=== PATIENT | male | born 1995 | race Caucasian/White ===

== ENCOUNTER → 2018-05-28 09:18 | Outpatient (CLI) | payer OTHER, SELFPAY | PROVIDERS: Family Provider Family Medicine; PCP Family Medicine; Visit Provider Nurse Practitioner Family | DX: J02.9 Acute pharyngitis, unspecified (principal) | CPT/HCPCS: 87081 ==

== ENCOUNTER → 2019-02-03 | Outpatient (CLI) | payer OTHER, SELFPAY ==
[2019-02-02 18:06] VITALS: BMI 19.0
== END | disposition home or self-care (01) ==
LOC: LABSPEC 14:02
PROVIDERS: Family Provider Family Medicine; PCP Family Medicine; Referring Provider Physician Assistant; Visit Provider Physician Assistant
DX: J02.9 Acute pharyngitis, unspecified (principal)
CPT/HCPCS: 87081

== ENCOUNTER → 2019-05-19 | Outpatient (CLI) | payer OTHER, SELFPAY ==
[2019-02-02 18:06] VITALS: BMI 19.0
[2019-05-19 07:45] LABS: Hemoglobin 14.8 g/dL (13.0-16.5); Mean Corp Hgb Conc 32.9 g/dL (32-36); Mean Corpuscular Hgb 29.8 pg (27.0-32.0); Mean Corpuscular Volume 90.5 fL (80-94); Mean Platelet Vol. 9.9 fl (6.2-12.0); Platelet Count 225 K/mm3 (150-450); RBC Distribution Width CV 11.9 % (11.6-14.6); RBC Distribution Width SD 39.8 fl (35.1-43.9); Red Blood Count 4.97 M/mm3 (4.6-6.2); White Blood Count 4.6 K/mm3 (4.4-11.0)
[2019-05-19 08:20] LABS: ALB/GLOB Ratio 1.5 RATIO (0.9-2.4); AST(SGOT) 20 U/L (15-37); Alanine Aminotransfer ALT/SGPT 25 U/L (16-61); Albumin, Serum 4.1 g/dL (3.2-5.0); Alkaline Phosphatase 71 U/L (45-117); Anion Gap 10 (5-15); BUN 18 mg/dL (7-18); BUN/Creat Ratio 23.2 RATIO (10-20); Calcium,Total 8.7 mg/dL (8.5-10.1); Chloride 107 mmol/L (98-107); Cholesterol 175 mg/dL (200); Creatinine, Serum 0.78 mg/dL (0.70-1.30); EST Glomerular Filtration Rate 131 mL/min (>60); Est Glom Filt Rate - Afr Amer 158 mL/min (>60); Globulin 2.8 g/dL (2.2-4.2); Glucose 86 mg/dL (74-106); High Density Lipoprotein 77 mg/dL; Potassium 3.9 mmol/L (3.5-5.1); Protein, Total 6.9 g/dL (6.4-8.2); Sodium Level 144 mmol/L (136-145); Triglycerides 45 mg/dL; Very Low Density Lipoprotein 9 mg/dL (5-40)
== END | disposition home or self-care (01) ==
LOC: LAB 06:44
PROVIDERS: Family Provider Family Medicine; PCP Family Medicine; Referring Provider Nurse Practitioner Family; Visit Provider Nurse Practitioner Family
DX: Z00.00 Encounter for general adult medical examination without abnormal findings (principal)
CPT/HCPCS: 36415; 80053; 80061; 85027

== ENCOUNTER → 2019-05-21 | Outpatient (CLI) | payer OTHER, SELFPAY ==
[2019-05-21 13:21] VITALS: BMI 18.2
== END | disposition home or self-care (01) ==
LOC: LABSPEC 16:33
PROVIDERS: Family Provider Family Medicine; PCP Family Medicine; Visit Provider Physician Assistant Medical
DX: J02.9 Acute pharyngitis, unspecified (principal)
CPT/HCPCS: 87081

== ENCOUNTER 2024-03-16 18:36 | Outpatient (REF) | payer SELFPAY ==
[2024-03-16 18:37] VITALS: BP 152/96; PULSE 102; RESP 18; TEMP 36.4; O2SAT 98; BMI 20.4
--- NOTE | 2024-03-16 19:07 | EX.ED.UPPERE ---
HPI History of Present Illness Chief Complaint: Occup Expose Informant: patient Narrative Narrative: Patient is an OR employee here at the hospital, he states he was in with orthopedics and there was a K wire that accidentally punctured his glove and his skin causing a small amount of bleeding left index finger. He washed it thoroughly, the patient has been screened and has no known history of infectious diseases such as hepatitis or HIV. His last tetanus was less than 10 years ago. Denies any other injury or symptoms. The patient does not have any history of hepatitis or HIV. PFSH PFSH Home Medications ?Medication ?Instructions ?Recorded ?Last Taken ?Type acetaminophen 325 mg capsule 325 mg PO Q6H PRN 05/28/18 Unknown History (Tylenol) ibuprofen 200 mg capsule 200 mg PO TID-QID PRN 05/28/18 Unknown History Allergy/AdvReac Type Severity Reaction Status Date / Time No Known Allergies Allergy Verified 07/12/19 10:34 Social History Smoking Status: Never smoker alcohol intake: never ROS ROS ED Constitutional Constitutional ED: Denies chills or fever(s) Musculoskeletal Musculoskeletal: Denies extremity pain or neck pain Integumentary Reports wounds; Denies Abrasions or rash Neurologic Neurologic: Denies paresthesias or weakness EXAM Physical Exam Const Vital Signs: 03/16/24 18:37 Temperature 97.6 F L Temperature Source Temporal Pulse Rate 102 H Respiratory Rate 18 Blood Pressure 152/96 H Blood Pressure Mean 114 Pulse Ox 98 Oxygen Delivery Method Room Air Positive well nourished and well developed General Appearance ED: well developed and NAD Neck full ROM and supple Back/Spine normal ROM and normal to inspection Extremity Extremity Narrative: Full range of motion no major injury, small wound beneath bandage left index finger pad. Neuro oriented x3, no focal motor deficits and no sensory deficits noted Sensorium / Orientation: alert Psych mental status grossly normal and thought process normal Skin Rashes: no rashes MDM MDM MDM Narrative Medical decision making narrative: The K-wire is not a hollow bore needle, this is a low-risk infection and according to the CDC no postexposure prophylaxis is indicated or necessary at this time. The source patient is available to test for these diseases, we are going to draw the status of this patient at this time he will follow-up with employee health. Discharge Plan Triage Chief Complaint: Occup Expose ED Provider: Cameron Hernandez Dx/Rx/DC Orders Clinical Impression: Needlestick injury accident with exposure to body fluid Instructions: ED NEEDLE STICK Health Care Worker Prescriptions: No Action acetaminophen [Tylenol] 325 mg capsule 325 mg PO Q6H PRN ibuprofen 200 mg capsule 200 mg PO TID-QID PRN Stand Alone Forms: Work Status Form Primary Care Provider: Guillaume Goodrich Referrals: Guillaume Goodrich MD [Primary Care Provider] - Health,Employee [Non-Staff -Ordering Privileges] - (next week) Print Language: French Disposition Disposition: Home, Self Care
[2024-03-16 19:44] VITALS: BP 142/65; PULSE 92; RESP 16; TEMP 36.4; O2SAT 99
[2024-03-16 21:48] LABS: HIV - WCH Non-Reactive (Nonreactive); Hepatitis B Surface Antibody Non-Reactive; Hepatitis B Surface Antigen Non-Reactive (Nonreactive); Hepatitis C Antibody Non-Reactive (Nonreactive)
== END 2024-03-16 19:50 | disposition home or self-care (01) ==
LOC: ED 18:36
PROVIDERS: PCP Family Medicine; Visit Provider Emergency Medicine
DX: S61.231A Puncture wound without foreign body of left index finger without damage to nail, initial encounter (principal); Z77.21 Contact with and (suspected) exposure to potentially hazardous body fluids; W26.8XXA Contact with other sharp object(s), not elsewhere classified, initial encounter; Y99.0 Civilian activity done for income or pay; Y92.239 Unspecified place in hospital as the place of occurrence of the external cause
CPT/HCPCS: 86703; 86706; 86803; 87340

== ENCOUNTER → 2025-05-31 | Outpatient (CLI) | payer OTHER, SELFPAY ==
--- OUTSIDE RECORDS SUMMARY | 2025-05-31 07:22 | XMS RPT_ITS | CCD ---
Author Organization [facility] Care Team Providers Care Founder Chairman And Chief Creative Officer Name Role Phone Lisa Morgan MD Primary Care Provider [phone] Lisa Morgan MD Primary Care Provider Timbo CLASSER.Sabine PRUETT Unavailable Isabelle Mensah PA-C Unavailable Lisa Morgan Primary Care Unavailable Assessment, Health Risk Attending Unavaila Lisa Hagan Primary Care Unavailable Assessment, Health Risk Attending Unavaila ble Assessment, Health Risk Referring Unavaila ble Assessment, Health Risk Attending Unavaila Lisa Hagan Primary Care Unavailable Lisa Morgan Primary Care Unavailable Jena Suarez Attending Unavailable Lisa Morgan Referring Unavailable Lisa Morgan Primary Care Unavailable Jena Suarez Attending Unavailable Lisa Morgan Referring Unavailable SABINE IZQUIERDO Attending Unavailable LISA MORGAN Primary Care Unavailable Medications Current Medications Medication Drug Class(es) Dates Sig (Normalized) Sig (Original) predniSONE 20 mg oral tablet (1 source) Start: 06-22-2024 End: 06-26-2024 take 1 tablet by mouth once daily at mealtime predniSONE (DELTASONE) 20 mg tablet Indications: Subacute cough Take 1 tablet by mouth once daily for 4 days. Take daily with food. 4 tablet 06/22/2024 06/26/2024 Active Problems Active Problems Problem Classification Problem Date Documented Da te Episodic/Chronic Genitourinary symptoms and ill-defined conditions (1 source) Microscopic hematuria; Translations: [Other microscopic hematuria] 06-24-2023 Episodic Other lower respiratory disease (3 sources) Cough; Translations: [Subacute cough] 05-10-2024 Episodic Other upper respiratory infections (1 source) Pharyngitis; Translations: [Acute pharyngitis, unspecified] 05-10-2024 Episodic Residual codes; unclassified (1 source) Generalized aches and pains; Translations: [Pain, unspecified] 06-24-2023 Episodic Unclassified (1 source) Subacute cough; Translations: [Subacute cough] Onset: 06-22-2024 Past or Other Problems Problem Classification Problem Date Documented Da te Episodic/Chronic Other screening for suspected conditions (not mental disorders or infectious disease) (12 sources) Patient encounter status; Translations: [Encounter for screening for diabetes mellitus] Onset: 07-03-2021 07-03-2021 Episodic Screening and history of mental health and substance abuse codes (2 sources) Encounter for screening for depression; Translations: [Encounter for screening examination for other mental health and behavioral disorders] Onset: 06-22-2024 Episodic Results Test Name Value Interpretation Reference Range Facility CBC, Employeeon 05-22-2025 Absolute Lymph 1.28 X10 3/uL Normal 0.83-4.51 [facility] Comment on above: Performed By: #### L 500.2900, L100.0200, L400.0100 #### [facility] [address] [place], [address] Absolute Neut 1.8 X10 3/uL Low 2.0-7.7 [facility] Comment on above: Performed By: #### L 500.2900, L100.0200, L400.0100 #### [facility] [address] [place], [address] Basophils/100 WBC (Bld) 1.1 % High 0-1 [facility] Comment on above: Performed By: #### L 500.2900, L100.0200, L400.0100 #### [facility] [address] [place], [address] Eosinophils/100 WBC (Bld) 1.1 % Normal 0-5 [facility] Comment on above: Performed By: #### L 500.2900, L100.0200, L400.0100 #### [facility] [address] [place], [address] Erythrocyte distribution width (RBC) [Ratio] 12.8 % Normal 11.6-14.6 [facility] Comment on above: Performed By: #### L 500.2900, L100.0200, L400.0100 #### [facility] [address] [place], [address] Hematocrit (Bld) [Volume fraction] 42.8 % Normal 40-54 [facility] Comment on above: Performed By: #### L 500.2900, L100.0200, L400.0100 #### [facility] [address] [place], [address] Hemoglobin (Bld) [Mass/Vol] 14.3 g/dL Normal 13.0-16.5 [facility] Comment on above: Performed By: #### L 500.2900, L100.0200, L400.0100 #### [facility] [address] [place], [address] Lymphocytes/100 WBC (Bld) 34.5 % Normal 19-41 [facility] Comment on above: Performed By: #### L 500.2900, L100.0200, L400.0100 #### [facility] [address] [place], [address] MCH (RBC) [Entitic mass] 30.2 pg Normal 27.0-32.0 [facility] Comment on above: Performed By: #### L 500.2900, L100.0200, L400.0100 #### [facility] [address] [place], [address] MCHC (RBC) [Mass/Vol] 33.4 g/dL Normal 32-36 [facility] Comment on above: Performed By: #### L 500.2900, L100.0200, L400.0100 #### [facility] [address] [place], [address] MCV (RBC) [Entitic vol] 90.3 fL Normal 80-94 [facility] Comment on above: Performed By: #### L 500.2900, L100.0200, L400.0100 #### [facility] [address] [place], [address] Monocytes/100 WBC (Bld) 13.7 % High 0-10 [facility] Comment on above: Performed By: #### L 500.2900, L100.0200, L400.0100 #### [facility] [address] [place], [address] Neutrophils/100 WBC (Bld) 49.3 % Normal 47-70 [facility] Comment on above: Performed By: #### L 500.2900, L100.0200, L400.0100 #### [facility] [address] [place], [address] NRBC # 0.00 10 3/uL Normal 0-5 [facility] Comment on above: Performed By: #### L 500.2900, L100.0200, L400.0100 #### [facility] [address] [place], [address] Nucleated RBC (Bld) [#/Vol] 0 10*3/uL Normal 0-5 [facility] Comment on above: Performed By: #### L 500.2900, L100.0200, L400.0100 #### [facility] [address] [place], [address] Platelet mean volume (Bld) [Entitic vol] 10.0 fL Normal 6.2-12.0 [facility] Comment on above: Performed By: #### L 500.2900, L100.0200, L400.0100 #### [facility] [address] [place], [address] Platelets (Bld) [#/Vol] 236 10*3/uL Normal 150-450 [facility] Comment on above: Performed By: #### L 500.2900, L100.0200, L400.0100 #### [facility] [address] [place], [address] RBC (Bld) [#/Vol] 4.74 10*6/uL Normal 4.6-6.2 [facility] Comment on above: Performed By: #### L 500.2900, L100.0200, L400.0100 #### [facility] [address] [place], [address] RDW SD 42.1 fl Normal 35.1-43.9 [facility] Comment on above: Performed By: #### L 500.2900, L100.0200, L400.0100 #### [facility] [address] [place], [address] WBC (Bld) [#/Vol] 3.7 10*3/uL Low 4.4-11.[address] [facility] Comment on above: Performed By: #### L 500.2900, L100.0200, L400.0100 #### [facility] [address] [place], [address] Employee Profileon 5 LDH 157 U/L Normal 87-241 [facility] Comment on above: Performed By: #### L 500.2900, L100.0200, L400.0100 #### [facility] [address] [place], [address] Phosphate [Mass/Vol] 3.1 mg/dL Normal 2.7-4.5 [facility] Comment on above: Performed By: #### L 500.2900, L100.0200, L400.0100 #### [facility] [address] [place], [address] URIC 5.8 mg/dL Normal 3.5-7.2 [facility] Comment on above: Result Comment: The drugs N-Acetylcysteine and Metamizole may falsely depress this assay. Performed By: #### L 500.2900, L100.0200, L400.0100 #### [facility] [address] [place], [address] Urinalysis, Employeeon 05-22 BILIRUBIN URINE Negative Normal Negative [facility] Comment on above: Order Comment: Urine , Random Performed By: #### L 500.2900, L100.0200, L400.0100 #### [facility] [address] [place], [address] Clarity (U) Clear Normal Clear [facility] Comment on above: Order Comment: Urine , Random Performed By: #### L 500.2900, L100.0200, L400.0100 #### [facility] [address] [place], [address] Color (U) Yellow Normal Yellow [facility] Comment on above: Order Comment: Urine , Random Performed By: #### L 500.2900, L100.0200, L400.0100 #### [facility] [address] [place], [address] GLUCOSE, UR Normal Normal Normal [facility] Comment on above: Order Comment: Urine , Random Performed By: #### L 500.2900, L100.0200, L400.0100 #### [facility] [address] [place], [address] KETONE UR Negative Normal Negative [facility] Comment on above: Order Comment: Urine , Random Performed By: #### L 500.2900, L100.0200, L400.0100 #### [facility] [address] [place], [address] LEUK ESTERASE Negative Normal Negative [facility] Comment on above: Order Comment: Urine , Random Performed By: #### L 500.2900, L100.0200, L400.0100 #### [facility] [address] [place], [address] Nitrite Ql (U) Negative Normal Negative [facility] Comment on above: Order Comment: Urine , Random Performed By: #### L 500.2900, L100.0200, L400.0100 #### [facility] [address] [place], [address] OCCULT BLOOD-UR 25 /ul Abnormal Negative [facility] Comment on above: Order Comment: Urine , Random Performed By: #### L 500.2900, L100.0200, L400.0100 #### [facility] [address] [place], [address] pH UR 6.5 Normal 5.0 - 8.0 [facility] Comment on above: Order Comment: Urine , Random Performed By: #### L 500.2900, L100.0200, L400.0100 #### [facility] [address] [place], [address] PROT DIPSTX 30 mg/dl Abnormal Negative [facility] Comment on above: Order Comment: Urine , Random Performed By: #### L 500.2900, L100.0200, L400.0100 #### [facility] [address] [place], [address] SP.GR. DIPSTX 1.015 Normal 1.002-1.030 [facility] Comment on above: Order Comment: Urine , Random Performed By: #### L 500.2900, L100.0200, L400.0100 #### [facility] [address] [place], [address] UROBILI Normal Normal Normal [facility] Comment on above: Order Comment: Urine , Random Performed By: #### L 500.2900, L100.0200, L400.0100 #### [facility] [address] [place], [address] Office Visit Reporton 2024 Office Visit Report [facility] [address] [place] [address] OFFICE VISIT Date of Service: 01/06/25 MR#: [id number] Acct: [id number] Patient: JIA OLSON Rep #: [id number] : 1995 Provider: EZRA Suarez Age/Sex: 29/M Location: [facility] Status: Signed Employer Purchased Covid Test Note: Patient here today for Covid Testing, requested by their Employer. [facility] Billing Sheet Covid Covid Swab-Rapid: Yes 04/21/25 0840 Date Jena Cook Signature: Date (if applicable) CC: Normal [facility] Office Visit Reporton 2024 Office Visit Report [facility] [address] [place] [address] OFFICE VISIT Date of Service: 01/06/25 MR#: [id number] Acct: [id number] Patient: JIA OLSON Rep #: [id number] : 1995 Provider: EZRA Suarez Age/Sex: 29/M Location: [facility] Status: Signed Employer Purchased Covid Test Note: Patient here today for Covid Testing, requested by their Employer. Assessment and Plan Assessment and Plan Orders: Orders POC Cepheid Covid, FluAB, RSV Today 01/06/25 1113 Date Jena Daniela CHILLING [employer] OPERATOR-C Cosigner Signature: Date (if applicable) CC: Normal [facility] Urgent Care Visit Reporton 0 01-06-2025 Urgent Care Visit Report [facility] [address], [address] [place] [address] OFFICE VISIT Date of Service: 01/06/25 MR#: [id number] Acct: [id number] Name: JIA OLSON Rep #: [id number] : 1995 Provider: EZRA Suarez Age/Sex: 29/M Location: [facility] Status: Signed Intake Vital Signs 03/16/24 18:37 01/06/25 08:04 Height 6 ft 2 in 6 ft 2 in Weight: 164 lb 6 oz BMI 21.1 BP 128/82 H Blood Pressure Location Lt brachial Position Sitting Respiration 14 Pulse 71 Pulse Source NIBP Temp 98.2 F Temp Source Oral Pulse Oximetry (%) 97 Oxygen Delivery Method room air Intake Visit Reasons: COUGH, SORE THROAT, EAR PAIN Chief Complaint: cough, DOUGLAS, BA, fever, ear pain [employer] Required: No Is patient in pain?: Yes Allergies No Known Allergies Allergy (Verified 01/06/25 08:55) Medications ???Medication ???Instructions ???Recorded ???Confirmed ???Type acetaminophen 325 mg capsule 325 mg PO Q6H PRN 05/28/18 5 History (Tylenol) ibuprofen 200 mg capsule 200 mg PO TID-QID PRN 05/28/18 History Have you fallen in the past year?: No Nurse's Note: cough, DOUGLAS, BA, fever, ear pain x 1 week. daughter with same s/s was given ATB by fabrics and material cutter, [facility] for [facility] History No active medical problems Surgical History No pertinent past surgical history Social History Smoking Status: Never smoker alcohol intake: never HPI HPI Chief Complaint: cough, DOUGLAS, BA, fever, ear pain Details: JIA OLSON, is a 29 M who presents to the office today for cough -sx started 1 wk ago -sx productive cough, sinus pressure, body aches, ears feel like under water, congestion and runny nose -felt had fever but not temp taken- had chills -no sob, chest vaughan -cough is green -tried so far Dayquil and Nyquil ROS Const Constitutional: Positive for other (ROS negative x6 except what was placed in HPI) Exam Const General: cooperative, comfortable and no acute distress Orientation: alert, awake and oriented x3 HENMT Head: normal to inspection and normocephalic Ears: hearing grossly normal bilaterally, external ears normal and TM's normal bilaterally Nose: external nose normal and other (+ congestion and rhinorrhea) Face and sinus: normal facial exam, sinuses nontender and face symmetric Mouth: oral mucosae normal, lip normal, tongue normal, oropharynx normal and moist mucous membranes Throat: posterior oropharynx normal, tonsils normal, uvula midline and postnasal drainage (moderate) Neck Neck: normal visual inspection, full ROM and no lymphadenopathy Resp Effort Inspection: normal respiratory effort, able to speak in complete sentences and symmetric chest movement Auscultation: Bilateral: Clear to Auscultation, Left: Clear to Auscultation and Right: Clear to Auscultation Cardio Rate: regular rate Rhythm: regular rhythm Heart Sounds: S1 normal and S2 normal GI Auscultation: normal bowel sounds Palpation: soft Skin General: no rashes or lesions noted and turgor normal Neuro General: patient alert, patient awake and patient oriented x3 Cognition: normal cognition Speech: speech normal Psych Appearance: grossly normal Mental Status: mental status grossly normal Attitude: cooperative Thought Process: normal Thought Content: normal Coding Level of Care Code Off vis,new,level 3 Diagnoses Viral URI J06.9 Acute cough R05.1 Cough type: acute PND (post-nasal drip) R09.82 Assessment and Plan Assessment and Plan (1) Viral URI: Status: Acute Plan: -Warm salt water gargles, warm tea with honey, increase fluids, saline nasal spray 2 squirts each nostril every 2 hours as needed, Flonase nasal spray 1 squirt once a day, cetirizine (Zyrtec) one daily, cool mist humidifier, Tylenol and or ibuprofen as needed for fever or discomfort. -Please follow up with your Primary Care Physician for ongoing chronic problems. If symptoms change or worsen, please present to Emergency Room for further evaluation 1. See visit diagnoses, disposition, and orders. 2. Reviewed and updated medication list; Discussed probable diagnosis, test results if available in office today and management options with patient/guardian: agreed to the medical plan above 3. Education provided regarding visit today, see after visit summary. Instruction provided in the use of fluids, vaporizer, acetaminophen, and/or other OTC medication for symptom control. Explained use of antibiotics only for proven or strongly suspected bacterial infections. 4. Prevention and health maintenance with primary care provider. 5. Patient/guardian educated (more content not included)... [facility] JIA OLSON ([id number]) 1995 M Date Time Provider Department 06/22/24 7:40 AM SABINE IZQUIERDO During your visit today, we recorded the following information about you: Pulse Respiration Blood pressure Weight 98/minute 14/minute 127/83 71.7 kg Sabine Izquierdo APRN.FORK TRUCK OPERATOR 06/22/2024 8:00 AM Signed Chief Complaint Patient presents with: Physical HPI Jia Olson is a 29 year old male who presents here today for Above Complaints.. Patient presents for annual physical. Patient reports he was seen in about a month ago and continues to have a dry hacking nonproductive cough. Past medical history, appointments, medications, allergies reviewed. Previous Medical History PAST MEDICAL HISTORY Diagnosis Date Migraines Palpitations Previous Surgical History PAST SURGICAL HISTORY Procedure Laterality Date CYST/MOLE REMOVAL 02/2023 TOOTH EXTRACTION x2 wisdom teeth Family History FAMILY HISTORY Problem Relation Age of Onset Hypertension Father other (other) Maternal Grandfather 87 multiple myeloma Diabetes No Family History Heart disease No Family History Thyroid No Family History Cancer No Family History Patient Allergies ALLERGIES No Known Allergies Current Medications No current outpatient medications on file prior to visit. No current facility-administered medications on file prior to visit. Social History Social History Tobacco Use Smoking status: Never Smokeless tobacco: Never Vaping Use Vaping status: Never Used Substance Use Topics Alcohol use: Yes Comment: rare (2x/month) Drug use: Never Review of Symptoms REVIEW OF SYSTEMS SEE HPI EXAM: BP 127/83 Pulse 98 Resp 14 Wt 71.7 kg (158 lb) BMI 20.60 kg/m? General Appearance: Well appearing, alert, in no acute distress, well-hydrated, well nourished.. Skin: Skin color, texture, turgor normal, no suspicious rashes or lesions. Lungs: Lungs clear to auscultation. No wheezing, rhonchi, rales.. Heart: RRR without murmur, gallop, or rubs. No ectopy. Abdomen: Normal abdominal exam, Abdomen soft, non-tender. Bowel sounds normal. No masses, organomegaly. Musculoskeletal: No joint swelling, deformity, or tenderness. Peripheral Pulses: Normal. Neurologic: Gait normal. Reflexes normal and symmetric. Sensation grossly intact.. Health Maintenance List Depression Screening Never done Anxiety Screening Never done DTaP,Tdap,Td Vaccine(7 - Td or Tdap) due on 01/26/2022 Influenza Vaccine(1) due on 05/21/2024 Covid-19 Vaccine(2 - 2023- season) due on 05/21/2024 Hepatitis C Screening due on 06/24/2024 HIV Screening due on 06/24/2024 Hepatitis B Vaccine Completed HPV Vaccine Aged Out Data reviewed Reviewed labs from [facility], [facility]NL ASSESSMENT/PLAN: 1. Well adult exam - ICD9: V70.0, ICD10: Z00.00 (primary diagnosis) - Counseled on healthy diet and regular exercise - Follow up for annual exam in one year 2. Screening for depression - ICD9: V79.0, ICD10: Z13.31 - DEPRESSION SCREENING 3. Encounter for screening examination for other mental health and behavioral disorders - ICD9: V79.8, ICD10: Z13.39 - ANXIETY SCREENING 4. Subacute cough - ICD9: 786.2, ICD10: R05.2 - PREDNISONE 20 MG TABLET Sabine Izquierdo, CLASSER.FORK TRUCK OPERATOR Allergies As of Date: 06/22/2024 (No Known Allergies) Date Reviewed: 06/22/2024 Reviewed by: Enriqueta Culp MA - Fully Assessed Reason for Visit: Physical [83] Primary Visit Diagnosis:Well adult exam [Z00.00] Other Visit Diagnoses:Screening for depression [Z13.31] Encounter for screening examination for other mental health and behavioral disorders [Z13.39] Subacute cough [R05.2] Order(s):DEPRESSION SCREENING [] Order #: [id number]: 1 ANXIETY SCREENING [] Order #: [id number]: 1 predniSONE (DELTASONE) 20 mg tabletTake 1 tablet by mouth once daily for 4 days. Take daily with food.Disp: 4 tabletRfl: 0 Prescriptions as of 06/22/2024 - predniSONE (DELTASONE) 20 mg tablet Take 1 tablet by mouth once daily for 4 days. Take daily with food. Problem List As Of Date 06/22/2024 Noted Resolved Well adult exam [Z00.00] 07/03/2021 Screening for diabetes mellitus [Z13.1] 07/03/2021 Prescriptions ordered this encounter Disp Refills Start End PREDNISONE 20 MG TABLET 4 ta* 0 06/22/2024 06/26/2024 Route: ORAL Sig: Take 1 tablet by mouth once daily for 4 days. Take daily with food. Disposition: Return in about 1 year (around 06/22/2025). Follow-up and Disposition History for Encounter Date Provider Department Center 06/22/2024 [id number] IZQUIERDO Pending Sale To [facility] [place] Encounter Status:Closed by SABINE IZQUIERDO on 06/22/24 Normal [facility] CBC, Employeeon 06-21-2024 Absolute Lymph 1.46 X10 3/uL Normal 0.83-4.51 [facility] Comment on above: Performed By: #### L 400.0100, L100.0200, L500.2900 #### [facility] [address] [place], [address] Absolute Neut 1.9 X10 3/uL Low 2.0-7.7 [facility] Comment on above: Performed By: #### L 400.0100, L100.0200, L500.2900 #### [facility] [address] [place], [address] Basophils/100 WBC (Bld) 1.0 % Normal 0-1 [facility] Comment on above: Performed By: #### L 400.0100, L100.0200, L500.2900 #### [facility] [address] [place], [address] Eosinophils/100 WBC (Bld) 2.0 % Normal 0-5 [facility] Comment on above: Performed By: #### L 400.0100, L100.0200, L500.2900 #### [facility] [address] [place], [address] Erythrocyte distribution width (RBC) [Ratio] 12.0 % Normal 11.6-14.6 [facility] Comment on above: Performed By: #### L 400.0100, L100.0200, L500.2900 #### [facility] [address] [place], [address] Hematocrit (Bld) [Volume fraction] 45.8 % Normal 40-54 [facility] Comment on above: Performed By: #### L 400.0100, L100.0200, L500.2900 #### [facility] [address] [place], [address] Hemoglobin (Bld) [Mass/Vol] 15.1 g/dL Normal 13.0-16.5 [facility] Comment on above: Performed By: #### L 400.0100, L100.0200, L500.2900 #### [facility] [address] [place], [address] Lymphocytes/100 WBC (Bld) 36.5 % Normal 19-41 [facility] Comment on above: Performed By: #### L 400.0100, L100.0200, L500.2900 #### [facility] [address] [place], [address] MCH (RBC) [Entitic mass] 29.7 pg Normal 27.0-32.0 [facility] Comment on above: Performed By: #### L 400.0100, L100.0200, L500.2900 #### [facility] [address] [place], [address] MCHC (RBC) [Mass/Vol] 33.0 g/dL Normal 32-36 [facility] Comment on above: Performed By: #### L 400.0100, L100.0200, L500.2900 #### [facility] [address] [place], [address] MCV (RBC) [Entitic vol] 90.0 fL Normal 80-94 [facility] Comment on above: Performed By: #### L 400.0100, L100.0200, L500.2900 #### [facility] [address] [place], [address] Monocytes/100 WBC (Bld) 13.5 % High 0-10 [facility] Comment on above: Performed By: #### L 400.0100, L100.0200, L500.2900 #### [facility] [address] [place], [address] Neutrophils/100 WBC (Bld) 46.5 % Low 47-70 [facility] Comment on above: Performed By: #### L 400.0100, L100.0200, L500.2900 #### [facility] [address] [place], [address] NRBC # 0.00 10 3/uL Normal 0-5 [facility] Comment on above: Performed By: #### L 400.0100, L100.0200, L500.2900 #### [facility] [address] [place], [address] Nucleated RBC (Bld) [#/Vol] 0 10*3/uL Normal 0-5 [facility] Comment on above: Performed By: #### L 400.0100, L100.0200, L500.2900 #### [facility] [address] [place], [address] Platelet mean volume (Bld) [Entitic vol] 9.6 fL Normal 6.2-12.0 [facility] Comment on above: Performed By: #### L 400.0100, L100.0200, L500.2900 #### [facility] [address] [place] [place], [address] Platelets (Bld) [#/Vol] 240 10*3/uL Normal 150-450 [facility] Comment on above: Performed By: #### L 400.0100, L100.0200, L500.2900 #### [facility] [address] [place], [address] RBC (Bld) [#/Vol] 5.09 10*6/uL Normal 4.6-6.2 [facility] Comment on above: Performed By: #### L 400.0100, L100.0200, L500.2900 #### [facility] [address] [place], [address] RDW SD 39.5 fl Normal 35.1-43.9 [facility] Comment on above: Performed By: #### L 400.0100, L100.0200, L500.2900 #### [facility] [address] [place], [address] WBC (Bld) [#/Vol] 4.0 10*3/uL Low 4.4-11.[address] [facility] Comment on above: Performed By: #### L 400.0100, L100.0200, L500.2900 #### [facility] [address] [place], [address] Employee Profile[employer] 4 Albumin [Mass/Vol] 4.1 g/dL Normal 3.2-5.[address] [facility] Comment on above: Performed By: #### L 400.0100, L100.0200, L500.2900 #### [facility] [address] [place] [place], [address] Albumin/Globulin [Mass ratio] 1.4 {ratio} Normal 0.9-2.4 [facility] Comment on above: Performed By: #### L 400.0100, L100.0200, L500.2900 #### [facility] [address] [place], [address] ALK P 62 U/L Normal 45-117 [facility] Comment on above: Performed By: #### L 400.0100, L100.0200, L500.2900 #### [facility] [address] [place], [address] ALT [Catalytic activity/Vol] 26 U/L Normal 16-61 [facility] Comment on above: Performed By: #### L 400.0100, L100.0200, L500.2900 #### [facility] [address] [place], [address] AST [Catalytic activity/Vol] 13 U/L Low 15-37 [facility] Comment on above: Performed By: #### L 400.0100, L100.0200, L500.2900 #### [facility] [address] [place], [address] Bilirubin [Mass/Vol] 0.70 mg/dL Normal 0.20-1.00 [facility] Comment on above: Result Comment: For patients on eltrombopag therapy, use of Dimension [place] TBIL is not recommended. Performed By: #### L 400.0100, L100.0200, L500.2900 #### [facility] [address] [place], [address] Bilirubin.direct [Mass/Vol] 0.18 mg/dL Normal 0.00-0.30 [facility] Comment on above: Performed By: #### L 400.0100, L100.0200, L500.2900 #### [facility] [address] [place], [address] BUN/CRE 19.0 RATIO Normal 10-20 [facility] Comment on above: Performed By: #### L 400.0100, L100.0200, L500.2900 #### [facility] [address] [place], [address] CA,Total 9.4 mg/dL Normal 8.5-10.1 [facility] Comment on above: Performed By: #### L 400.0100, L100.0200, L500.2900 #### [facility] [address] [place], [address] Chloride [Moles/Vol] 107 mmol/L Normal 98-107 [facility] Comment on above: Performed By: #### L 400.0100, L100.0200, L500.2900 #### [facility] [address] [place], [address] CHOL:HDL 2.30 Normal [facility] Comment on above: Performed By: #### L 400.0100, L100.0200, L500.2900 #### [facility] [address] [place], [address] Cholesterol [Mass/Vol] 186 mg/dL Normal 200 [facility] Comment on above: Result Comment: <200 mg/dL Desirable 200-240 mg/dL Borderline >240 mg/dL High Risk Performed By: #### L 400.0100, L100.0200, L500.2900 #### [facility] [address] [place], [address] Cholesterol in HDL [Mass/Vol] 81 mg/dL Normal [facility] Comment on above: Result Comment: The drugs N-Acetylcysteine and Metamizole may falsely depress this assay. Reference Range HDL <40 mg/dL Low HDL Cholesterol HDL >or= 60 mg/dL High HDL Cholesterol Performed By: #### L 400.0100, L100.0200, L500.2900 #### [facility] [address] [place], [address] Cholesterol in LDL [Mass/Vol] 87 mg/dL Normal 0-130 [facility] Comment on above: Performed By: #### L 400.0100, L100.0200, L500.2900 #### [facility] [address] [place], [address] Cholesterol in VLDL [Mass/Vol] 18 mg/dL Normal 5-40 [facility] Comment on above: Performed By: #### L 400.0100, L100.0200, L500.2900 #### [facility] [address] [place], [address] CO2 [Moles/Vol] 27.0 mmol/L Normal 21.0-32.0 [facility] Comment on above: Performed By: #### L 400.0100, L100.0200, L500.2900 #### [facility] [address] [place], [address] Creatinine [Mass/Vol] 0.74 mg/dL Normal 0.70-1.30 [facility] Comment on above: Result Comment: The validity of the calculated GFR GFRAA in patients over 70 years has not been determined. Clinical correlation is essential. Performed By: #### L 400.0100, L100.0200, L500.2900 #### [facility] [address] [place], [address] EST GFR - AA 162 mL/min Normal >60 [facility] Comment on above: Result Comment: Afri can [place] GFR Calc Performed By: #### L 400.0100, L100.0200, L500.2900 #### [facility] [address] [place], [address] GAP 6 Normal 5-15 [facility] Comment on above: Performed By: #### L 400.0100, L100.0200, L500.2900 #### [facility] [address] [place], [address] GFR/1.73 sq M.predicted among non-blacks MDRD (S/P/Bld) [Vol rate/Area] 134 mL/min/{1.73_m2} Normal >60 [facility] Comment on above: Result Comment: Non- GFR Calc Performed By: #### L 400.0100, L100.0200, L500.2900 #### [facility] [address] [place], [address] Globulin (S) [Mass/Vol] 2.9 g/dL Normal 2.2-4.2 [facility] Comment on above: Performed By: #### L 400.0100, L100.0200, L500.2900 #### [facility] [address] [place], [address] Glucose [Mass/Vol] 86 mg/dL Normal 74-[address] [facility] Comment on above: Performed By: #### L 400.0100, L100.0200, L500.2900 #### [facility] [address] [place], [address] LDH 147 U/L Normal 87-241 [facility] Comment on above: Performed By: #### L 400.0100, L100.0200, L500.2900 #### [facility] [address] [place], [address] Phosphate [Mass/Vol] 2.8 mg/dL Normal 2.5-4.9 [facility] Comment on above: Performed By: #### L 400.0100, L100.0200, L500.2900 #### [facility] [address] [place], [address] Potassium [Moles/Vol] 4.3 mmol/L Normal 3.5-5.1 [facility] Comment on above: Performed By: #### L 400.0100, L100.0200, L500.2900 #### [facility] [address] [place], [address] Sodium [Moles/Vol] 140 mmol/L Normal 136-[address] [facility] Comment on above: Performed By: #### L 400.0100, L100.0200, L500.2900 #### [facility] [address] [place], [address] T PROT 7.0 g/dL Normal 6.4-8.2 [facility] Comment on above: Performed By: #### L 400.0100, L100.0200, L500.2900 #### [facility] [address] [place], [address] Triglyceride [Mass/Vol] 88 mg/dL Normal [facility] Comment on above: Result Comment: The drugs N-Acetylcysteine and Metamizole may falsely depress this assay. Serum Triglycerides Reference Interval Normal <150 mg/dL Borderline high 150 - 199 mg/dL High 200 - 499 mg/dL Very High > or = 500 mg/dL Performed By: #### L 400.0100, L100.0200, L500.2900 #### [facility] [address] [place], [address] Urea nitrogen [Mass/Vol] 14 mg/dL Normal 7-18 [facility] Comment on above: Performed By: #### L 400.0100, L100.0200, L500.2900 #### [facility] [address] [place], [address] URIC 5.1 mg/dL Normal 3.5-7.2 [facility] Comment on above: Result Comment: The drugs N-Acetylcysteine and Metamizole may falsely depress this assay. Performed By: #### L 400.0100, L100.0200, L500.2900 #### [facility] [address] [place], [address] Urinalysis, Employeeon 06-21 BILIRUBIN URINE Negative Normal Negative [facility] Comment on above: Order Comment: CLEAN CATCH Performed By: #### L 400.0100, L100.0200, L500.2900 #### [facility] [address] [place], [address] Clarity (U) Sl. Cloudy Normal Clear [facility] Comment on above: Order Comment: CLEAN CATCH Performed By: #### L 400.0100, L100.0200, L500.2900 #### [facility] [address] [place], [address] Color (U) Yellow Normal Yellow [facility] Comment on above: Order Comment: CLEAN CATCH Performed By: #### L 400.0100, L100.0200, L500.2900 #### [facility] [address] [place], [address] GLUCOSE, UR Normal Normal Normal [facility] Comment on above: Order Comment: CLEAN CATCH Performed By: #### L 400.0100, L100.0200, L500.2900 #### [facility] [address] [place], [address] KETONE UR Negative Normal Negative [facility] Comment on above: Order Comment: CLEAN CATCH Performed By: #### L 400.0100, L100.0200, L500.2900 #### [facility] [address] [place], [address] LEUK ESTERASE Negative Normal Negative [facility] Comment on above: Order Comment: CLEAN CATCH Performed By: #### L 400.0100, L100.0200, L500.2900 #### [facility] [address] [place], [address] Nitrite Ql (U) Negative Normal Negative [facility] Comment on above: Order Comment: CLEAN CATCH Performed By: #### L 400.0100, L100.0200, L500.2900 #### [facility] [address] [place], [address] OCCULT BLOOD-UR Negative Normal Negative [facility] Comment on above: Order Comment: CLEAN CATCH Performed By: #### L 400.0100, L100.0200, L500.2900 #### [facility] [address] [place], [address] pH UR 7.0 Normal 5.0 - 8.0 [facility] Comment on above: Order Comment: CLEAN CATCH Performed By: #### L 400.0100, L100.0200, L500.2900 #### [facility] [address] [place], [address] PROT DIPSTX 15 mg/dl Abnormal Negative [facility] Comment on above: Order Comment: CLEAN CATCH Performed By: #### L 400.0100, L100.0200, L500.2900 #### [facility] [address] [place], [address] SP.GR. DIPSTX 1.010 Normal 1.002-1.030 [facility] Comment on above: Order Comment: CLEAN CATCH Performed By: #### L 400.0100, L100.0200, L500.2900 #### [facility] [address] [place], [address] UROBILI Normal Normal Normal [facility] Comment on above: Order Comment: CLEAN CATCH Performed By: #### L 400.0100, L100.0200, L500.2900 #### [facility] [address] [place], [address] STREP A MOLECULAR (POC)on Procedural Control Valid [facility] Strep A (POCT) Negative Negative [facility] XR Chest PA and Lateralon IMPRESSION: No acute radiographic abnormality. Hot Tar Roofer: PSCB Transcribe Date/Time: May 10 2024 8:37A Dictated by : GRECIA SANTANA DO This examination was interpreted and the report reviewed and electronically signed by: GRECIA SANTANA DO on May 10 2024 8:38AM [facility] DIVISION OF RADIOLOGY * * *Final Report* * * DATE OF EXAM: May 10 2024 8:37AM WOX [id number] - XR CHEST 2V FRONTAL/LAT / PROCEDURE REASON: Subacute cough * * * * Physician Interpretation * * * * EXAMINATION: CHEST RADIOGRAPH (2 VIEW FRONTAL & LATERAL) PATIENT/TECHNOLOGIST PROVIDED HISTORY: cough for 2-3 months = CLINICAL HISTORY: 28 years old Male with Subacute cough MQ: XC2_6 EXAM DATE/TIME: 05/10/2024 8:37 AM COMPARISON: No relevant prior studies available. RESULT: Lines, tubes, and devices: None. Lungs and pleura: No consolidation. No pleural effusion. No pneumothorax. Cardiomediastinal silhouette: Normal cardiomediastinal silhouette. Bones and soft tissues: Unremarkable. DIVISION OF RADIOLOGY Provider, [facility] - 05/10/2024 * * *Final Report* * * DATE OF EXAM: May 10 2024 8:37AM WOX [id number] - XR CHEST 2V FRONTAL/LAT / PROCEDURE REASON: Subacute cough * * * * Physician Interpretation * * * * EXAMINATION: CHEST RADIOGRAPH (2 VIEW FRONTAL & LATERAL) PATIENT/TECHNOLOGIST PROVIDED HISTORY: cough for 2-3 months = CLINICAL HISTORY: 28 years old Male with Subacute cough MQ: XC2_6 EXAM DATE/TIME: 05/10/2024 8:37 AM COMPARISON: No relevant prior studies available. RESULT: Lines, tubes, and devices: None. Lungs and pleura: No consolidation. No pleural effusion. No pneumothorax. Cardiomediastinal silhouette: Normal cardiomediastinal silhouette. Bones and soft tissues: Unremarkable. IMPRESSION IMPRESSION: No acute radiographic abnormality. Hot Tar Roofer: PSCB Transcribe Date/Time: May 10 2024 8:37A Dictated by : GRECIA SANTANA DO This examination was interpreted and the report reviewed and electronically signed by: GRECIA SANTANA DO on May 10 2024 8:38AM EST [facility] Radiology Study observation (narrative) [facility] XR Chest PA and LateralOrder ed By: [facility] Provider on 05-10-2024 [facility] LIPID PANEL (EXTERNAL)on Cholesterol [Mass/Vol] 194 mg/dL 0 - 200 MG/DL [facility] HDC-L 84 mg/dL Abnormal 41 mg/dL [facility] LDH 150 [facility] LDL Chol, calculated 96 MG/DL 130 MG/DL [facility] Triglyceride [Mass/Vol] 68 mg/dL 149 mg/dL [facility] VLDL 14 Ratio 10 - 38 Ratio [facility] LIPID PANEL (OUTSIDE)on 05-21 Cholesterol [Mass/Vol] 192 mg/dL [facility] Cholesterol in HDL [Mass/Vol] 83 mg/dL [facility] Cholesterol in LDL [Mass/Vol] 97 mg/dL [facility] LDH 161 [facility] Non-HDL Cholesterol [facility] TC:HDL Ratio 2.30 [facility] Triglyceride [Mass/Vol] 62 mg/dL [facility] VLDL Cholesterol 12 [facility] Vital Signs Date Time Vital Sign Value Performing Clinician Faci lity 06-22-2024 07:41-0400 Body mass index (BMI) [Ratio] 20.6 kg/m2 Sabine Izquierdo APRN.CNP Work Phone: [facility] 06-22-2024 07:41-0400 Body weight 71.67 kg Sabine Izquierdo APRN.CNP Work Phone: [facility] 06-22-2024 07:41-0400 Diastolic blood pressure 83 mm[Hg] Sabine Izquierdo CLASSER.FORK TRUCK OPERATOR Work Phone: [facility] 06-22-2024 07:41-0400 Heart rate 98 /min Sabine Izquierdo CLASSER.FORK TRUCK OPERATOR Work Phone: [facility] 06-22-2024 07:41-0400 Respiratory rate 14 /min Sabine Izquierdo CLASSER.FORK TRUCK OPERATOR Work Phone: [facility] 06-22-2024 07:41-0400 Systolic blood pressure 127 mm[Hg] Sabine Izquierdo CLASSER.FORK TRUCK OPERATOR Work Phone: [facility] 05-10-2024 07:28-0400 Body mass index (BMI) [Ratio] 21.16 kg/m2 Lisa Miller CLASSER.FORK TRUCK OPERATOR Work Phone: [facility] 05-10-2024 07:28-0400 Body temperature 97.39 [degF] Lisa Miller CLASSER.FORK TRUCK OPERATOR Work Phone: [facility] 05-10-2024 07:28-0400 Body weight 73.6 kg Lisa Miller CLASSER.FORK TRUCK OPERATOR Work Phone: [facility] 05-10-2024 07:28-0400 Diastolic blood pressure 74 mm[Hg] Lisa Miller CLASSER.FORK TRUCK OPERATOR Work Phone: [facility] 05-10-2024 07:28-0400 Heart rate 65 /min Lisa Miller CLASSER.FORK TRUCK OPERATOR Work Phone: [facility] 05-10-2024 07:28-0400 Respiratory rate 16 /min Lisa Miller CLASSER.FORK TRUCK OPERATOR Work Phone: [facility] 05-10-2024 07:28-0400 SaO2% (BldA) [Mass fraction] 98 % Lisa Miller CLASSER.FORK TRUCK OPERATOR Work Phone: [facility] 05-10-2024 07:28-0400 Systolic blood pressure 112 mm[Hg] Lisa Miller CLASSER.FORK TRUCK OPERATOR Work Phone: [facility] 06-24-2023 12:33-0400 Body height 186.5 cm Isabellegulshan Mensah PA-C Work Phone: [facility] 06-24-2023 12:33-0400 Body temperature 100.4 [degF] Isabelle Mensah PA-C Work Phone: [facility] 06-24-2023 12:33-0400 Body weight 71.67 kg Isabellegulshan Mensah PA-C Work Phone: [facility] 06-24-2023 12:33-0400 Diastolic blood pressure 70 mm[Hg] Isabelle Mensah PA-C Work Phone: [facility] 06-24-2023 12:33-0400 Heart rate 97 /min Isabelle Mensah PA-C Work Phone: [facility] 06-24-2023 12:33-0400 Respiratory rate 18 /min Isabelle Mensah PA-C Work Phone: [facility] 06-24-2023 12:33-0400 Systolic blood pressure 102 mm[Hg] Isabelle Mensah PA-C Work Phone: [facility] 06-04-2022 11:58-0400 Body height 188 cm Isabelle Mensah PA-C Work Phone: [facility] 06-04-2022 11:58-0400 Body temperature 97.59 [degF] Isabelle Mensah PA-C Work Phone: [facility] 06-04-2022 11:58-0400 Body weight 68.49 kg Isabellegulshan Mensah PA-C Work Phone: [facility] 06-04-2022 11:58-0400 Diastolic blood pressure 72 mm[Hg] Isabelle Mensah PA-C Work Phone: [facility] 06-04-2022 11:58-0400 Heart rate 80 /min Isabelle Mensah PA-C Work Phone: [facility] 06-04-2022 11:58-0400 Respiratory rate 16 /min Isabelle Mensah PA-C Work Phone: [facility] 06-04-2022 11:58-0400 Systolic blood pressure 110 mm[Hg] Isabelle Mensah PA-C Work Phone: [facility] Encounters Encounter Date Encounter Type Care Provider Facility Start: 05-22-2025 End: 05-22-2025 Chart abstracting Lisa Morgan MD Work Phone: [facility] Start: 05-22-2025 ambulatory Health Risk Assessment Facility:[facility] Start: 01-06-2025 End: 01-06-2025 ambulatory [facility] Facility:[facility] Start: 07-21-2024 ambulatory [facility] Facility :[facility] Start: 06-22-2024 End: 06-22-2024 Patient encounter procedure Sabine Izquierdo APRN.CNP Work Phone: [facility] Comment on above: Well adult exam ([facility] Dx); Screening for depression; Encounter for screening examination for other mental health and behavioral disorders; Subacute cough Start: 06-22-2024 End: 06-22-2024 Patient encounter status Sabine Izquierdo APRN.CNP Work Phone: [facility] Work Phone: Start: 06-22-2024 End: 06-22-2024 ambulatory SABINE IZQUIERDO Facility:[facility] Start: 06-21-2024 End: [facility] Start: 05-10-2024 End: 05-10-2024 Telephone encounter Lisa Miller APRN.CNP Work Phone: [place] [facility] Comment on above: Results Start: 05-10-2024 End: 05-10-2024 Subsequent hospital visit by physician Dario Pending [facility] [place] Work Phone: Radiology Comment on above: Subacute cough [R05. 2] Start: 05-10-2024 End: 05-10-2024 Office outpatient visit 15 minutes Lisa Miller APRN.CNP Work Phone: [place] [facility] Comment on above: Pharyngitis, unspeci fied etiology (Primary Dx); Subacute cough Start: 03-17-2024 Chart abstracting Lisa kelly MD Work Phone: [facility] [place] Comment on above: ER Discharge Summary Start: 06-24-2023 End: 06-24-2023 Patient encounter procedure Isabelle Mensah PA-C Work Phone: [facility] [place] Comment on above: Well adult exam (Irma dyana Dx); Microscopic hematuria; Body aches Start: 06-24-2023 End: 06-24-2023 Patient encounter status Isabelle Mensah PA-C Work Phone: [facility] Work Phone: Start: 06-23-2023 Chart abstracting Lisa kelly MD Work Phone: [facility] [place] Comment on above: Outside [id number] Ordered Start: 06-04-2022 Chart abstracting Lisa kelly MD Work Phone: [facility] [place] Comment on above: Outside Lab Results (Patient employee health lab results) Start: 06-04-2022 Encounter for genera l adult medical examination without abnormal findings SABINE IZQUIERDO [facility] Start: 06-04-2022 End: 06-04-2022 Patient encounter procedure Isabelle Mensah PA-C Work Phone: [facility] [place] Comment on above: Well adult exam Start: 06-04-2022 End: 06-04-2022 Patient encounter status Isabelle Mensah PA-C Work Phone: [facility] Work Phone: Procedures Date Procedure Procedure Detail Performing Clinician Start: 06-22-2024 Adult depression screening assessment Sabine Izquierdo CLASSER.FORK TRUCK OPERATOR Work Phone: Start: 05-10-2024 Radiologic exam ches t 2 views Lisa Miller APRN.FORK TRUCK OPERATOR Work Phone: Start: 05-10-2024 STREP A MOLECULAR (POC) Lisa Miller APRN.FORK TRUCK OPERATOR Work Phone: Start: 06-23-2023 Lipid panel [facility] Prov[facility] er Start: 06-04-2022 Lipid panel [facility] Start: 06-04-2022 Adult depression screening assessment Lisa Morgan MD Work Phone: Plan of Treatment Date Care Activity Detail Author Start: 06-22-2025 Anxiety Screening Anxiety Screening [facility] Start: 06-22-2025 Depression Screening Depression Scre ening [facility] Start: 05-30-2025 End: 05-30-2025 Patient encounter procedure 05/30/2025 9:40 AM EDT Office Visit [facility] [address] [place], [place] [id number] Lisa Morgan MD [address] [place], [place] [id number] Work Physical. [facility] [place] Comment on above: Work Physical. Start: 05-21-2025 Influenza vaccination Influenza Vacc ine (#1) [facility] Start: 06-24-2024 Covid-19 Vaccine () Covid-19 Vaccine () [facility] Comment on above: Postponed from 05/21 (Declined at this time) Start: 06-24-2024 Covid-19 Vaccine (2 - Booster for [place] series) Covid-19 Vaccine (2 - Booster for [place] series) [facility] Comment on above: Postponed from 07/31 (Declined at this time) Start: 06-24-2024 Hepatitis C Screening Hepatitis C [facility] Comment on above: Postponed from 06/01 (Declined at this time) Start: 06-24-2024 Hepatitis C screening Hepatitis C [facility] Comment on above: Postponed from 06/01 (Declined at this time) Start: 06-24-2024 HIV Screening HIV Screening [facility] Comment on above: Postponed from 06/01 (Declined at this time) Start: 06-24-2024 HIV screening HIV Screening [facility] Comment on above: Postponed from 06/01 (Declined at this time) Start: 05-21-2024 Covid-19 Vaccine () Covid-19 Vaccine () [facility] Start: 05-21-2024 Covid-19 Vaccine ( season) Covid-19 Vaccine ( season) [facility] Start: 05-21-2024 Influenza vaccination Influenza Vacc ine (#1) [facility] Start: 03-19-2024 Influenza vaccination Influenza Vacc ine (#1) [facility] Comment on above: Postponed from 05/21 (Declined at this time) Start: 09-20-2023 Behavioral Health Screening Behavioral Health Screening [facility] Start: 09-19-2023 Depression Assessment Depression Ass essment [facility] Comment on above: Postponed from 09/20 (Declined at this time) Start: 06-24-2023 End: 08-24-2023 Urinalysis complete panel - Urine URINALYSIS, WITH MICROSCOPIC Lab Routine Microscopic hematuria Expected: 06/24/2023, Expires: 08/24/2023 [place] Work Phone: Comment on above: Expected: 06/24/2023 , Expires: 08/24/2023 Start: 06-04-2023 Adult depression screening assessment DEPRESSION SCREENING [facility] Start: 07-03-2022 HEPATITIS C SCREENING HEPATITIS C [facility] Comment on above: Postponed from 06/01 (Declined at this time) Start: 07-03-2022 HIV SCREENING HIV SCREENING [facility] Comment on above: Postponed from 06/01 (Declined at this time) Start: 2022 HPV Vaccine (1 - 3-d ose SCDM series) HPV Vaccine (1 - 3-dose SCDM series) [facility] Start: 05-21-2022 Influenza vaccination INFLUENZA (#1) [facility] Start: 01-26-2022 Urine microalbumin profile [facility] Start: 07-31-2021 COVID-19 VACCINE (2 - Booster for [place] series) COVID-19 VACCINE (2 - Booster for [place] series) [facility] Start: 2013 Anxiety Screening Anxiety Screening [facility] Start: 2013 Depression Screening Depression Scre ening [facility] Start: 2013 Hepatitis C screening Hepatitis C [facility] Start: 2013 HIV screening HIV Screening [facility] Immunizations Immunization Date Immunization Notes Care Provider [facility] 08-05-2023 influenza virus vaccine, unspecified formulation Lisa Miller APRN.CNP Work Phone: [facility] 08-05-2022 influenza virus vaccine, unspecified formulation Lisa Morgan MD Work Phone: [facility] 08-11-2021 influenza, seasonal, injectable, preservative free Lisa Morgan MD Work Phone: [facility] 06-05-2021 COVID-19 vaccine ([place]) Lisa Morgan MD Work Phone: [facility] 07-08-2020 influenza, seasonal, injectable, preservative free Lisa Morgan MD Work Phone: [facility] 07-24-2019 influenza, seasonal, injectable, preservative free Lisa Morgan MD Work Phone: [facility] 07-04-2018 influenza, seasonal, injectable, preservative free Lisa Morgan MD Work Phone: [facility] 03-02-2018 hepatitis B vaccine, adult dosage Lisa Morgan MD Work Phone: [facility] 06-24-2012 varicella virus vaccine Freddie Morgan MD Work Phone: [facility] 05-20-2012 varicella virus vaccine Freddie Morgan MD Work Phone: [facility] 01-27-2012 tetanus toxoid, redu liza diphtheria toxoid, and acellular pertussis vaccine, adsorbed Lisa Morgan MD Work Phone: [facility] 04-08-2001 diphtheria, tetanus toxoids and acellular pertussis vaccine, unspecified formulation Lisa Morgan MD Work Phone: [facility] 04-08-2001 measles, mumps and rubella virus vaccine Lisa Morgan MD Work Phone: [facility] 04-08-2001 poliovirus vaccine, inactivated Lisa Morgan MD Work Phone: [facility] 01-04-1997 diphtheria, tetanus toxoids and acellular pertussis vaccine, unspecified formulation Lisa Morgan MD Work Phone: [facility] 01-04-1997 haemophilus influenz ae type b vaccine, PRP-T conjugate Lisa Morgan MD Work Phone: [facility] 06-08-1996 measles, mumps and rubella virus vaccine Lisa Morgan MD Work Phone: [facility] 1995 DTP-Haemophilus influenzae type b conjugate vaccine Lisa Morgan MD Work Phone: [facility] 1995 hepatitis B vaccine, pediatric or pediatric/adolescent dosage Lisa Morgan MD Work Phone: [facility] 1995 trivalent poliovirus vaccine, live, oral Lisa Morgan MD Work Phone: [facility] 1995 DTP-Haemophilus influenzae type b conjugate vaccine Lisa Morgan MD Work Phone: [facility] 1995 trivalent poliovirus vaccine, live, oral Lisa Morgan MD Work Phone: [facility] 1995 DTP-Haemophilus influenzae type b conjugate vaccine Lisa Morgan MD Work Phone: [facility] 1995 hepatitis B vaccine, pediatric or pediatric/adolescent dosage Lisa Morgan MD Work Phone: [facility] 1995 trivalent poliovirus vaccine, live, oral Lisa Morgan MD Work Phone: [facility] 1995 hepatitis B vaccine, pediatric or pediatric/adolescent dosage Lisa Morgan MD Work Phone: [facility] Payers Date Payer Category Payer Unknown [id number] 2024 Self-pay 2022 Private Health Insurance [id number] 2022 Private Health Insurance [id number] 2020 Unknown MMO MMO TPA [id number] 2020-Present [address] [place] [address] PPO [id number] Unknown [id number] 2 Unknown [id number] 2 Unknown [id number] 2 Unknown [id number] 2 Unknown [id number] 2 Social History Date Type Detail Facility Start: 07-03-2021 End: 06-24-2023 Tobacco smoking status NHIS Never smoked tobacco [facility] Start: 07-03-2021 End: 06-24-2023 Tobacco use and exposure Smokeless tobacco non-user [facility] Start: 06-04-2022 End: 05-10-2024 Alcohol intake Current drinker of alcohol (finding) [facility] Start: 06-04-2022 History SDOH Alcohol Frequency 3 [facility] Start: 06-04-2022 History SDOH Alcohol Std Drinks 1 [facility] Start: 07-03-2021 History SDOH Alcohol Comment rare (2x/month) [facility] Start: 06-04-2022 History SDOH Social Connections Phone 4 [facility] Start: 06-04-2022 History SDOH Social Connections Get Together 5 [facility] Start: 06-04-2022 History SDOH Transport Med 2 [facility] Start: 1995 Sex Assigned At Not on file [facility] Start: 05-25-2022 End: 06-04-2022 Exposure to SARS-CoV-2 (event) Not sure [facility] Start: 06-04-2022 End: 06-24-2023 History of Social function [place] [facility] Start: 06-04-2022 End: 06-24-2023 Social connection and isolation panel [facility] Start: 08-21-2012 Active Member of Clu bs or Organizations Not on file [facility] Are you now , , , , never or living with a partner? [facility] How often to you hav e a drink containing alcohol? 2-4 times a month [facility] How many standard dr inks containing alcohol do you have on a typical day? 1 or 2 [facility] How often do you hav e 6 or more drinks on 1 occasion? Never [facility] Do you feel stress - tense, restless, nervous, or anxious, or unable to sleep at night because your mind is troubled all the time - these days [OSQ] Not at all [facility] (I/We) worried samy er (my/our) food would run out before (I/we) got money to buy more. Never true [facility] In the past 12 month s, was there a time when you were not able to pay the mortgage or rent on time? No [facility] Do you belong to any clubs or organizations such as bahai groups, unions, fraternal or athletic groups, or school groups? Yes [facility] Do you feel stress - tense, restless, nervous, or anxious, or unable to sleep at night because your mind is troubled all the time - these days [OSQ] Only a little [facility] Clinical Notes 06-04-2022 to 05-22-2025 Roberta Fajardo MA - 05/22/2025 8:17 AM Sabine Ann APRN.FORK TRUCK OPERATOR - 06/22/2024 7:45 AM EDTTelephone Encounter - Delmis Cleveland MA - 05/10/2024 9:36 AM EDTPatient Instructions Note Date & Type Note Facility 05-22-2025 Note HNO ID: [id number] Author: ROBERTA FAJARDO MA Service: ? Author Type: Wound Care Coordinator Type: Progress Notes Filed: 05/22/2025 08:38 Note Text: Scan on 05/22/2025 7:37 AM by ProviderEdu PA-C: UA Scan on 05/22/2025 7:10 AM by ProviderEdu PA-C: CBC Scan on 05/22/2025 8:16 AM by ProviderEdu PA-C: BMP [facility] 05-22-2025 History of Presen t illness Narrative Scan on 05/22/2025 7:37 AM by Edu Jarvis PA-C: UA Scan on 05/22/2025 7:10 AM by Edu Jarvis PA-C: CBC Scan on 05/22/2025 8:16 AM by Edu Jarvis PA-C: BMP documented in this encounter [facility] 06-22-2024 Note HNO ID: [id number] Author: SABINE IZQUIERDO APRN.FORK TRUCK OPERATOR Service: ? Author Type: Nurse Practitioner Type: Progress Notes Filed: 06/22/2024 08:00 Note Text: Chief Complaint Patient presents with: Physical HPI Jia Olson is a 29 year old male who presents here today for Above Complaints.. Patient presents for annual physical. Patient reports he was seen in about a month ago and continues to have a dry hacking nonproductive cough. Past medical history, appointments, medications, allergies reviewed. Previous Medical History PAST MEDICAL HISTORY Diagnosis Date Migraines Palpitations Previous Surgical History PAST SURGICAL HISTORY Procedure Laterality Date CYST/MOLE REMOVAL 02/2023 TOOTH EXTRACTION x2 wisdom teeth Family History FAMILY HISTORY Problem Relation Age of Onset Hypertension Father other (other) Maternal Grandfather 87 multiple myeloma Diabetes No Family History Heart disease No Family History Thyroid No Family History Cancer No Family History Patient Allergies ALLERGIES No Known Allergies Current Medications No current outpatient medications on file prior to visit. No current facility-administered medications on file prior to visit. Social History Social History Tobacco Use Smoking status: Never Smokeless tobacco: Never Vaping Use Vaping status: Never Used Substance Use Topics Alcohol use: Yes Comment: rare (2x/month) Drug use: Never Review of Symptoms REVIEW OF SYSTEMS SEE HPI EXAM: BP 127/83 Pulse 98 Resp 14 Wt 71.7 kg (158 lb) BMI 20.60 kg/m? General Appearance: Well appearing, alert, in no acute distress, well-hydrated, well nourished.. Skin: Skin color, texture, turgor normal, no suspicious rashes or lesions. Lungs: Lungs clear to auscultation. No wheezing, rhonchi, rales.. Heart: RRR without murmur, gallop, or rubs. No ectopy. Abdomen: Normal abdominal exam, Abdomen soft, non-tender. Bowel sounds normal. No masses, organomegaly. Musculoskeletal: No joint swelling, deformity, or tenderness. Peripheral Pulses: Normal. Neurologic: Gait normal. Reflexes normal and symmetric. Sensation grossly intact.. Health Maintenance List Depression Screening Never done Anxiety Screening Never done DTaP,Tdap,Td Vaccine(7 - Td or Tdap) due on 01/26/2022 Influenza Vaccine(1) due on 05/21/2024 Covid-19 Vaccine(2 - season) due on 05/21/2024 Hepatitis C Screening due on 06/24/2024 HIV Screening due on 06/24/2024 Hepatitis B Vaccine Completed HPV Vaccine Aged Out Data reviewed Reviewed labs from [facility], [facility] ASSESSMENT/PLAN: 1. Well adult exam - ICD9: V70.0, ICD10: Z00.00 (primary diagnosis) - Counseled on healthy diet and regular exercise - Follow up for annual exam in one year 2. Screening for depression - ICD9: V79.0, ICD10: Z13.31 - DEPRESSION SCREENING 3. Encounter for screening examination for other mental health and behavioral disorders - ICD9: V79.8, ICD10: Z13.39 - ANXIETY SCREENING 4. Subacute cough - ICD9: 786.2, ICD10: R05.2 - PREDNISONE 20 MG TABLET Sabine Izquierdo APRN.[facility] 06-22-2024 History of Presen t illness Narrative Chief Complaint Patient presents with: Physical HPI Jia Olson is a 29 year old male who presents here today for Above Complaints.. Patient presents for annual physical. Patient reports he was seen in about a month ago and continues to have a dry hacking nonproductive cough. Past medical history, appointments, medications, allergies reviewed. Previous Medical History PAST MEDICAL HISTORY Diagnosis Date Migraines Palpitations Previous Surgical History PAST SURGICAL HISTORY Procedure Laterality Date CYST/MOLE REMOVAL 02/2023 TOOTH EXTRACTION x2 wisdom teeth Family History FAMILY HISTORY Problem Relation Age of Onset Hypertension Father other (other) Maternal Grandfather 87 multiple myeloma Diabetes No Family History Heart disease No Family History Thyroid No Family History Cancer No Family History Patient Allergies ALLERGIES No Known Allergies Current Medications No current outpatient medications on file prior to visit. No current facility-administered medications on file prior to visit. Social History Social History Tobacco Use Smoking status: Never Smokeless tobacco: Never Vaping Use Vaping status: Never Used Substance Use Topics Alcohol use: Yes Comment: rare (2x/month) Drug use: Never Review of Symptoms REVIEW OF SYSTEMS SEE HPI EXAM: BP 127/83 Pulse 98 Resp 14 Wt 71.7 kg (158 lb) BMI 20.60 kg/m General Appearance: Well appearing, alert, in no acute distress, well-hydrated, well nourished.. Skin: Skin color, texture, turgor normal, no suspicious rashes or lesions. Lungs: Lungs clear to auscultation. No wheezing, rhonchi, rales.. Heart: RRR without murmur, gallop, or rubs. No ectopy. Abdomen: Normal abdominal exam, Abdomen soft, non-tender. Bowel sounds normal. No masses, organomegaly. Musculoskeletal: No joint swelling, deformity, or tenderness. Peripheral Pulses: Normal. Neurologic: Gait normal. Reflexes normal and symmetric. Sensation grossly intact.. Health Maintenance List Depression Screening Never done Anxiety Screening Never done DTaP,Tdap,Td Vaccine(7 - Td or Tdap) due on 01/26/2022 Influenza Vaccine(1) due on 05/21/2024 Covid-19 Vaccine(2 - 2023- season) due on 05/21/2024 Hepatitis C Screening due on 06/24/2024 HIV Screening due on 06/24/2024 Hepatitis B Vaccine Completed HPV Vaccine Aged Out Data reviewed Reviewed labs from [facility], [facility] ASSESSMENT/PLAN: 1. Well adult exam - ICD9: V70.0, ICD10: Z00.00 (primary diagnosis) - Counseled on healthy diet and regular exercise - Follow up for annual exam in one year 2. Screening for depression - ICD9: V79.0, ICD10: Z13.31 - DEPRESSION SCREENING 3. Encounter for screening examination for other mental health and behavioral disorders - ICD9: V79.8, ICD10: Z13.39 - ANXIETY SCREENING 4. Subacute cough - ICD9: 786.2, ICD10: R05.2 - PREDNISONE 20 MG TABLET Sabine Izquierdo APRN.FORK TRUCK OPERATOR documented in this encounter [facility] 05-10-2024 Telephone encount er Note Pt was notified of the results. Pt verbalized understanding. Delmis Cleveland MA [facility] 05-10-2024 Miscellaneous Notes Formattin g of this note might be different from the original. Pt was notified of the results. Pt verbalized understanding. Delmis [place] MA Please inform patient that chest x-ray is negative. Follow-up with PCP as discussed. Lisa Miller APRN.CNP documented in this encounter [facility] 05-10-2024 Telephone encount er Note Please inform patient that chest x-ray is negative. Follow-up with PCP as discussed. Lisa Miller APRN.[facility]BLE [facility] 05-10-2024 History of Presen t illness Narrative Radiology Service Progress Note PATIENT NAME: Jia Olson DATE OF SERVICE: May 10, 2024 TIME: 8:25 AM PATIENT IDENTITY VERIFICATION COMPLETED USING TWO (2) IDENTIFIERS: Name and Date of confirmed by patient verbally. FALL SCREENING: Has the patient had 2 falls in the last year or 1 fall with injury or currently using an Ambulatory Assistive Device (Walker, Cane, Wheelchair, Crutches, etc.)? No PATIENT GENDER DATA: Male PATIENT RELEVANT IMPLANT DATA REVIEWED: Not Applicable PATIENT PRESENTS WITH AN IMPLANTABLE OR ATTACHED BUILDING ANALYST/SUPERVISOR: No RADIOLOGY DEPARTMENT: General X-ray: Exam(s) Completed: Chest X-Ray PERIPHERAL IV DATA: Not applicable SIGNED BY: CLARIBEL EdwardR) May 10, 2024 8:37 AM documented in this encounter [facility] 05-10-2024 Instructions Lisa Miller APRN.FORK TRUCK OPERATOR - 05/10/2024 7:40 AM EDT [facility] PATIENT INFO PHARYNGITIS OVERVIEW A sore throat (pharyngitis) is a common problem, and usually is caused by a viral or bacterial infection. Sore throat usually resolves on its own without complications in adults, although it is important to know when to seek medical attention. Viruses can cause a sore throat and other upper respiratory infections, such as the common cold. Sore throat caused by a virus is not treated with antibiotics, but instead may be treated with rest, pain medication, and other therapies aimed at relieving symptoms. Strep throat is a particular kind of pharyngitis that is caused by a bacterium known as group A streptococcus (GAS). Strep throat is treated with a course of antibiotics. SORE THROAT SYMPTOMS Viral pharyngitis - Most people with a sore throat have a virus. The most common viruses are those that cause upper respiratory infections, such as the common cold. Symptoms of a viral infection can include: A runny or congested nose Irritation or redness of the eyes Cough, hoarseness, or soreness in the roof of the mouth Some viruses cause a fever and can make you feel quite ill. Strep throat - Approximately 10 percent of adults with a sore throat have strep throat. Signs and symptoms of strep throat include the following: Pain in the throat Fever (temperature greater than 100.4 F or 38 C) Enlarged lymph glands in the neck No cough, runny nose, or irritation/redness of the eyes When to seek urgent help - See your doctor or nurse immediately if you have a sore throat along with any of the following: Difficulty breathing Skin rash Drooling because you cannot swallow Swelling of the neck or tongue Stiff neck or difficulty opening the mouth SORE THROAT DIAGNOSIS Most people with a sore throat get better without treatment. There is no specific treatment for a sore throat caused by usual cold viruses. Is it strep or not? - A combination of symptoms (fever, enlarged glands in the neck, white patches on your tonsils, and no cough) can help in determining if you have strep. If you have two or more symptoms, a rapid test or throat culture may be done. People with fewer than two symptoms usually do not need testing or treatment for strep throat. Rapid test - The rapid test determines if there are streptococcus bacteria on a throat swab. The test can be done in a clinician's office and the results are available within a few minutes. The test is accurate in most cases, although a small percentage of tests are falsely negative (the bacteria are present but the test is negative). Strep Confirmatory Test - involves swabbing the throat, sending the swab to a laboratory, and waiting 24 to 48 hours for the results. These Strep PCR tests are slightly more accurate than the rapid test. TREATMENT OF SORE THROAT Sore throat treatment - Antibiotics do not help throat pain caused by a virus and are not recommended. Sore throat caused by viral infections usually lasts four to five days. During this time, treatments to reduce pain may be helpful. Several therapies can help to relieve throat pain. Pain medication - You can treat your throat pain with a mild pain reliever such as acetaminophen (Tylenol ) or a non -steroidal anti-inflammatory agent such as ibuprofen or naproxen (Motrin or Aleve ). Oral rinses - Salt water gargles are an effective treatment for throat pain. It is not clear that salt water works to relieve pain, but it is unlikely to be harmful. Most recipes suggest 1/4 to 1/2 teaspoon of salt per one cup (8 ounces) of warm water. Sprays - Sprays containing topical anesthetics ( benzocaine, phenol) are available to treat sore throat. However, such sprays are no more effective than sucking on hard candy. Lozenges - A variety of lozenges (cough drops) are available to treat throat pain or relieve dryness. However, it is not clear that lozenges work any better than other forms of hard candy, which are generally less expensive. Other treatments - Other treatments that may help with throat pain include increase fluid intake and rest, sipping warm beverages (eg, honey or lemon tea, chicken soup), cold beverages, or eating cold or frozen desserts (eg, ice cream, popsicles).Replace your toothbrush, it may be harboring germs. Until the illness is resolved, do not share anything by mouth. Strep throat - Penicillin, or an antibiotic related to penicillin, is the treatment of choice for strep throat. A one time injection of penicillin is also available. People who are allergic to penicillin are given an alternate antibiotic. It is important to finish the entire course of treatment to completely eliminate the infection. If symptoms do not begin to improve or worsen by three days of antibiotic treatment, you should see your primary care provider. Return to work/school - If you have been diagnosed with strep throat, stay home from work or school until you have completed 24 hours of antibiotics. Within 24 hours of beginning antibiotic treatment, you will feel better and will be less contagious. If you have a sore throat (not diagnosed as strep), you may participate in your usual activities as soon as you feel well. What to do if symptoms don't improve:- If symptoms do not begin to improve within 5 to 7 days you should see your primary care provider. documented in this encounter [facility] 05-10-2024 History of Presen t illness Narrative Subjective HPI Nontoxic-appearing male presents urgent care chief complaint sore throat headache fatigue episodic fever. Duration of symptom 1 week. Associated symptoms listed above. States additionally has had a cough. This has been worse in the morning. This has been present for greater than 1 month. Has been using Tylenol Motrin this is helped some. Sick contacts work. No difficulty swallowing his secretion decreased range of motion of neck or trismus. Denies any fever body aches chills productive cough chest pain shortness of breath pleuritic pain hemoptysis nausea vomiting abdominal pain change in bowel or bladder habits. Past medical history prescription medication use and allergies reviewed. .Patient presents with: Sore Throat: ST, [place] and fever x 1 week PAST MEDICAL HISTORY No date: Migraines No date: Palpitations PAST SURGICAL HISTORY 02/2023: CYST/MOLE REMOVAL No date: TOOTH EXTRACTION Comment: x2 wisdom teeth ALLERGIES Patient has no known allergies. MEDICATIONS No prescriptions on file. FAMILY HISTORY Problem Relation Age of Onset Hypertension Father other (other) Maternal Grandfather 87 multiple myeloma Diabetes No Family History Heart disease No Family History Thyroid No Family History Cancer No Family History Social History Tobacco Use Smoking status: Never Smokeless tobacco: Never Vaping Use Vaping status: Never Used Substance Use Topics Alcohol use: Yes Comment: rare (2x/month) Drug use: Never BP 112/74 Pulse 65 Temp 36.3 C (97.4 F) (Tympanic) Resp 16 Wt 73.6 kg (162 lb 4.1 oz) SpO2 98% BMI 21.16 kg/m Review of Systems Constitutional: Positive for fever and malaise/fatigue. Negative for chills. HENT: Positive for congestion and sore throat. Negative for ear discharge, ear pain and sinus pain. Eyes: Negative for blurred vision, pain, discharge and redness. Respiratory: Positive for cough. Negative for hemoptysis, sputum production, shortness of breath, wheezing and stridor. Cardiovascular: Negative for chest pain. Gastrointestinal: Negative for abdominal pain, diarrhea, nausea and vomiting. Musculoskeletal: Positive for myalgias. Skin: Negative for itching and rash. Neurological: Positive for headaches. Negative for dizziness. Objective Physical Exam Constitutional: General: He is not in acute distress. Appearance: He is not diaphoretic. HENT: Head: Normocephalic. Jaw: No trismus, tenderness, swelling or pain on movement. Nose: Nose normal. Mouth/Throat: Mouth: Mucous membranes are moist. Pharynx: Oropharynx is clear. Uvula midline. Posterior oropharyngeal erythema present. No pharyngeal swelling, oropharyngeal exudate or uvula swelling. Tonsils: No tonsillar exudate or tonsillar abscesses. Eyes: Conjunctiva/sclera: Conjunctivae normal. Pupils: Pupils are equal, round, and reactive to light. Cardiovascular: Rate and Rhythm: Normal rate and regular rhythm. Heart sounds: Normal heart sounds. Pulmonary: Effort: Pulmonary effort is normal. No tachypnea, accessory muscle usage or respiratory distress. Breath sounds: Normal breath sounds. No stridor. No wheezing, rhonchi or rales. Abdominal: General: There is no distension. Palpations: Abdomen is soft. Tenderness: There is no abdominal tenderness. There is no guarding or rebound. Musculoskeletal: Cervical back: Normal range of motion and neck supple. No edema, erythema, rigidity or tenderness. No pain with movement. Normal range of motion. Lymphadenopathy: Cervical: No cervical adenopathy. Skin: General: Skin is warm and dry. Neurological: Mental Status: He is alert and oriented to person, place, and time. ASSESSMENT/PLAN: 1. Pharyngitis, unspecified etiology - ICD9: 462, ICD10: J02.9 (primary diagnosis) - STREP A MOLECULAR (POC) 2. Subacute cough - ICD9: 786.2, ICD10: R05.2 - XR CHEST 2V FRONTAL/LAT Strep test negative. Suspicious of viral etiology for pharyngitis headache fatigue and fever. Additionally diagnosed with subacute cough. We discussed causes of subacute cough such as postviral cough, acid reflux, allergy postnasal drip. Will obtain a chest x-ray today. Will follow-up with PCP 1 to 2 weeks symptoms do not improve. Lisa Miller APRN.FORK TRUCK OPERATOR documented in this encounter [facility] 03-17-2024 History of Presen t illness Narrative Scan on 03/16/2024 7:16 PM by ProviderEdu PA-C: Consultation - Emergency Medicine documented in this encounter [facility] 06-24-2023 Instructions Isabelle Mensah PA-C - 06/24/2023 1:14 PM EDT Repeat urine in 2 weeks. Otherwise follow up in 1 year. documented in this encounter [facility] 06-24-2023 History of Presen t illness Narrative Chief Complaint Patient presents with: Yearly Exam HPI Jia Olson is a 28 year old male who presents here today for physical. Patient without significant medical history. Patient does have low grade fever today and feeling achy. Daughter has had some sinus symptoms for past week. Past medical history, appointments, medications, allergies reviewed. Previous Medical History PAST MEDICAL HISTORY Diagnosis Date Migraines Palpitations Previous Surgical History PAST SURGICAL HISTORY Procedure Laterality Date TOOTH EXTRACTION x2 wisdom teeth Family History FAMILY HISTORY Problem Relation Age of Onset Hypertension Father other (other) Maternal Grandfather 87 multiple myeloma Diabetes No Family History Heart disease No Family History Thyroid No Family History Cancer No Family History Patient Allergies ALLERGIES No Known Allergies Current Medications No current outpatient medications on file prior to visit. No current facility-administered medications on file prior to visit. Social History Social History Tobacco Use Smoking status: Never Smokeless tobacco: Never Vaping Use Vaping Use: Never used Substance Use Topics Alcohol use: Yes Comment: rare (2x/month) Drug use: Never Review of Symptoms REVIEW OF SYSTEMS GENERAL: No weight loss, malaise or fevers HEENT: No changes in hearing or vision, no nose bleeds or other nasal problems NECK: Negative for lumps, goiter, pain and significant neck swelling RESPIRATORY: Negative for cough, hemoptysis, wheezing, COPD, dyspnea or shortness of breath CARDIOVASCULAR: Negative for chest pain, leg swelling, hypertension, CHF or palpitations GI: Negative for abdominal discomfort, blood in stools or black stools, change in bowel habit, heart burn, nausea, vomiting : No history of dysuria, frequency or incontinence MUSCULOSKELETAL: Negative for joint pain or swelling, back pain or muscle pain SKIN: Negative for lesions, rash, and itching PSYCH: Negative for sleep disturbance, mood disorder and recent psychosocial stressors HEMATOLOGY/LYMPHOLOGY: Negative for prolonged bleeding, bruising easily or swollen nodes ENDOCRINE: Negative for cold or heat intolerance, polyuria, polydipsia and goiter NEURO: No history of headaches, syncope, paralysis, seizures or tremors EXAM: BP 102/70 (BP Site: Left Arm, BP Position: Sitting, BP Cuff Size: Regular Adult) Pulse 97 Temp (!) 38 C (100.4 F) Resp 18 Ht 186.5 cm (6' 1.43) Wt 71.7 kg (158 lb) BMI 20.60 kg/m General Appearance: Well appearing, alert, in no acute distress, well-hydrated, well nourished.. Skin: Skin color, texture, turgor normal, no suspicious rashes or lesions. Head: Normocephalic, no masses, lesions, tenderness or abnormalities. Eyes: Anicteric sclera. Pupils are equally round and reactive to light. Extraocular movements are intact. . Ears: External ears normal, canals clear, TMs pearly. Nose/Sinuses: Nares normal, septum midline, mucosa normal, no drainage or sinus tenderness. Oropharynx: Lips, mucosa, and tongue normal, teeth and gums normal, oropharynx normal. Neck: Supple, no adenopathy; thyroid symmetric, normal size, no bruits. Lungs: Lungs clear to auscultation. No wheezing, rhonchi, rales.. Heart: RRR without murmur, gallop, or rubs. No ectopy. Abdomen: Normal abdominal exam, Abdomen soft, non-tender. Bowel sounds normal. No masses, organomegaly. Extremities: No deformities, edema, skin discoloration, clubbing or cyanosis. Good capillary refill. . Peripheral Pulses: Normal. Neurologic: Gait normal. Reflexes normal and symmetric. Sensation grossly intact.. Health Maintenance List Hepatitis C Screening Never done HIV Screening Never done DTaP,Tdap,Td Vaccine(7 - Td or Tdap) due on 01/26/2022 Depression Assessment Never done Influenza Vaccine(1) due on 03/19/2024 Covid-19 Vaccine(2 - Booster for [place] series) due on 06/24/2024 Hepatitis B Vaccine Completed HPV Vaccine Aged Out Data reviewed ASSESSMENT/PLAN: 1. Well adult exam - ICD9: V70.0, ICD10: Z00.00 (primary diagnosis) - Counseled on healthy diet and regular exercise - patient declines tdap today. Believes he has had a more recent one done. 2. Microscopic hematuria - ICD9: 599.72, ICD10: R31.29 Recheck in 2 weeks - URINALYSIS, WITH MICROSCOPIC 3. Body aches - ICD9: 780.96, ICD10: R52 Patient declines covid/flu/rsv swab. Continue symptomatic treatment. Isabelle Mensah PA-C documented in this encounter [facility] 06-23-2023 History of Presen t illness Narrative Scan on 06/23/2023 8:40 AM by ProviderEdu PA-C: Miscellaneous Lab documented in this encounter [facility] 06-04-2022 History of Presen t illness Narrative Chief Complaint Patient presents with: Physical HPI Ro A Stair is a 27 year old male who presents here today for physical. Patient without significant past medical hx. Reports doing well. No concerns today. Past medical history, appointments, medications, allergies reviewed. Previous Medical History PAST MEDICAL HISTORY Diagnosis Date Migraines Palpitations Previous Surgical History PAST SURGICAL HISTORY Procedure Laterality Date TOOTH EXTRACTION x2 wisdom teeth Family History FAMILY HISTORY Problem Relation Age of Onset Hypertension Father Diabetes No Family History Heart disease No Family History Thyroid No Family History Cancer No Family History Patient Allergies ALLERGIES No Known Allergies Current Medications No current outpatient medications on file prior to visit. No current facility-administered medications on file prior to visit. Social History Social History Tobacco Use Smoking status: Never Smokeless tobacco: Never Vaping Use Vaping Use: Never used Substance Use Topics Alcohol use: Yes Comment: rare (2x/month) Drug use: Never Review of Symptoms REVIEW OF SYSTEMS GENERAL: No weight loss, malaise or fevers HEENT: No changes in hearing or vision, no nose bleeds or other nasal problems NECK: Negative for lumps, goiter, pain and significant neck swelling RESPIRATORY: Negative for cough, hemoptysis, wheezing, COPD, dyspnea or shortness of breath CARDIOVASCULAR: Negative for chest pain, leg swelling, CHF or palpitations GI: Negative for abdominal discomfort, blood in stools or black stools, change in bowel habit, heart burn, nausea, vomiting : No history of dysuria, frequency or incontinence MUSCULOSKELETAL: Negative for joint pain or swelling, back pain or muscle pain SKIN: Negative for lesions, rash, and itching PSYCH: Negative for sleep disturbance, mood disorder and recent psychosocial stressors HEMATOLOGY/LYMPHOLOGY: Negative for prolonged bleeding, bruising easily or swollen nodes ENDOCRINE: Negative for cold or heat intolerance, polyuria, polydipsia and goiter NEURO: No history of headaches, syncope, paralysis, seizures or tremors EXAM: BP 110/72 (BP Site: Left Arm, BP Position: Sitting, BP Cuff Size: Regular Adult) Pulse 80 Temp 36.4 C (97.6 F) Resp 16 Ht 188 cm (6' 2.02) Wt 68.5 kg (151 lb) BMI 19.38 kg/m General Appearance: Well appearing, alert, in no acute distress, well-hydrated, well nourished.. Skin: Skin color, texture, turgor normal, no suspicious rashes or lesions. Head: Normocephalic, no masses, lesions, tenderness or abnormalities. Eyes: Anicteric sclera. Pupils are equally round and reactive to light. Extraocular movements are intact. . Ears: External ears normal, canals clear, TMs pearly lindsey. Nose/Sinuses: Nares normal, septum midline, mucosa normal, no drainage or sinus tenderness. Oropharynx: Lips, mucosa, and tongue normal, teeth and gums normal, oropharynx normal. Neck: Supple, no adenopathy; thyroid symmetric, normal size, no bruits. Lungs: Lungs clear to auscultation. No wheezing, rhonchi, rales.. Heart: RRR without murmur, gallop, or rubs. No ectopy. Abdomen: Normal abdominal exam, Abdomen soft, non-tender. Bowel sounds normal. No masses, organomegaly. Extremities: No deformities, edema, skin discoloration, clubbing or cyanosis. Good capillary refill. . Musculoskeletal: No joint swelling, deformity, or tenderness. Peripheral Pulses: Normal. Neurologic: Gait normal. Reflexes normal and symmetric. Sensation grossly intact.. Health Maintenance List COVID-19 VACCINE(2 - Booster for [place] series) due on 07/31/2021 DTAP,TDAP,TD(7 - Td or Tdap) due on 01/26/2022 INFLUENZA(1) due on 05/21/2022 HEPATITIS C SCREENING due on 07/03/2022 HIV SCREENING due on 07/03/2022 DEPRESSION SCREENING due on 06/04/2023 HEPATITIS B Completed Data reviewed ASSESSMENT/PLAN: 1. Well adult exam - ICD9: V70.0, ICD10: Z00.00 - Counseled on healthy diet and regular exercise - Follow up for annual exam in one year Isabelle Mensah PA-C documented in this encounter [facility] 06-04-2022 History of Presen t illness Narrative Received copy of pt's lab work from [employer]. Gen Duque LPN Scan on 06/04/2022 9:09 AM by External Provider: Chemistry Scan on 06/04/2022 8:41 AM by External Provider: Hematology documented in this encounter [facility] Evaluation note Diagnosis Well adult exam Routine general medical examination at a health care facility [facility] Diagnosis Well adult exam- Primary Routine general medical examination at a health care facility Microscopic hematuria Body aches Generalized pain documented in this encounter [facility] note* Diagnosis Pharyngitis, unspecified etiology- Primary Subacute cough Cough Subacute cough Cough documented in this encounter [facility] note* Diagnosis Subacute cough Cough documented in this encounter [facility] note* Diagnosis Well adult exam- Primary Routine general medical examination at a health care facility Screening for depression Encounter for screening examination for other mental health and behavioral disorders Subacute cough Cough [facility] Diagnostic Procedure Only (Routine) - Closed Specialty Diagnoses / Procedures Referred By Booker live Referred To Contact Radiology / [facility] Diagnoses xr chest urg lobby Procedures XR CHEST Lisa Miller APRN.FORK TRUCK OPERATOR [address] [place] [address] [facility] [address] [place] [address] Referral ID Status Reason Start Date Expiration Date Visits Re quested Visits Authorized [id number] Closed 05/10/2024 05/10/2024 1 1 [facility] Summary Purpose Family History No Family History Records FoundNo Family History Records Found Advance Directives No Advanced Directives Records FoundNo Advanced Directives Records Found Additional Source Comments Source Comments (unrecognize d section and content) In the event this informatio n is protected by the Federal Confidentiality of Alcohol and Drug Abuse Patient Records regulations: The Federal rules restrict any use of the information to criminally investigate or prosecute any alcohol or drug abuse patient.[facility] the event this information is protected by the Federal Confidentiality of Alcohol and Drug Abuse Patient Records regulations: The Federal rules restrict any use of the information to criminally investigate or prosecute any alcohol or drug abuse patient.[facility] the event this information is protected by the Federal Confidentiality of Alcohol and Drug Abuse Patient Records regulations: The Federal rules restrict any use of the information to criminally investigate or prosecute any alcohol or drug abuse patient.[facility] the event this information is protected by the Federal Confidentiality of Alcohol and Drug Abuse Patient Records regulations: The Federal rules restrict any use of the information to criminally investigate or prosecute any alcohol or drug abuse patient.[facility] the event this information is protected by the Federal Confidentiality of Alcohol and Drug Abuse Patient Records regulations: The Federal rules restrict any use of the information to criminally investigate or prosecute any alcohol or drug abuse patient.[facility] the event this information is protected by the Federal Confidentiality of Alcohol and Drug Abuse Patient Records regulations: The Federal rules restrict any use of the information to criminally investigate or prosecute any alcohol or drug abuse patient.[facility] the event this information is protected by the Federal Confidentiality of Alcohol and Drug Abuse Patient Records regulations: The Federal rules restrict any use of the information to criminally investigate or prosecute any alcohol or drug abuse patient.[facility] the event this information is protected by the Federal Confidentiality of Alcohol and Drug Abuse Patient Records regulations: The Federal rules restrict any use of the information to criminally investigate or prosecute any alcohol or drug abuse patient.[facility] the event this information is protected by the Federal Confidentiality of Alcohol and Drug Abuse Patient Records regulations: The Federal rules restrict any use of the information to criminally investigate or prosecute any alcohol or drug abuse patient.[facility] the event this information is protected by the Federal Confidentiality of Alcohol and Drug Abuse Patient Records regulations: The Federal rules restrict any use of the information to criminally investigate or prosecute any alcohol or drug abuse patient.[facility] Reason for Visit (unrecogniz ed section and content) Reason Comments Outside Lab Results Patient employee [employer] [facility] lab results Reason Comments Physical Reason Comments Outside [id number] Ordered Reason Comments Yearly Exam Reason Comments ER Discharge Summary Reason Comments Results Reason Comments Sore Throat ST, DOUGLAS and fever x 1 week Care Teams (unrecognized sec tion and content) Founder Chairman And Chief Creative Officer Relationship Specialty Start Date End Date Lisa Morgan MD [address] [place] [address] PCP - General Family Practice 07/03/21 Founder Chairman And Chief Creative Officer Relationship Specialty Start Date End Date Lisa Morgan MD [address] [place] [address] PCP - General Family Practice 07/03/21 Founder Chairman And Chief Creative Officer Relationship Specialty Start Date End Date Lisa Morgan MD [address] [place] [address] PCP - General Family Medicine 07/03/21 Founder Chairman And Chief Creative Officer Relationship Specialty Start Date End Date Lisa Morgan MD [address] [place] [address] PCP - General Family Medicine 07/03/21 Founder Chairman And Chief Creative Officer Relationship Specialty Start Date End Date Lisa Morgan MD [address] [place] [address] PCP - General Family Medicine 07/03/21 Founder Chairman And Chief Creative Officer Relationship Specialty Start Date End Date Lisa Morgan MD [address] [place] [address] PCP - General Family Medicine 07/03/21 Founder Chairman And Chief Creative Officer Relationship Specialty Start Date End Date Lisa Morgan MD [address] [place], [place] [id number] [phone] PCP - General Family Medicine 07/03/21 Founder Chairman And Chief Creative Officer Relationship Specialty Start Date End Date Lisa Morgan MD [address] [place] [address] PCP - General Family Medicine 07/03/21 Founder Chairman And Chief Creative Officer Relationship Specialty Start Date End Date Lisa Morgan MD [address] [place] [address] PCP - General Family Medicine 07/03/21 Founder Chairman And Chief Creative Officer Relationship Specialty Start Date End Date Lisa Morgan MD [address] [place], [place] [id number] [phone] PCP - General Family Medicine 07/03/21 Sabine Izquierdo, YASMIN.FORK TRUCK OPERATOR [address] [place], [place] [id number] [phone] Branch Account Executive Family Medicine 02/19/25 Isabelle Mensah PA-C [address] [place] [address] Branch Account Executive Family Medicine 02/19/25 (unrecognized sect ion and content) No Status Records FoundNo Status Records Found INFORMATION SOURCE (unrecogn ized section and content) DATE CREATED AUTHOR 05/22/2025 [facility] DATE CREATED AUTHOR AUTHOR'S HUNTER BELLAMY 05/22/2025 [facility] FOR RECORDS PERTAINING TO PATIENTS WHO ARE OR HAVE BEEN ENROLLED IN A CHEMICAL DEPENDENCY/SUBSTANCEABUSE PROGRAM, SOME INFORMATION MAY BE OMITTED. This clinical summary was aggregated from multiple sources. Caution should be exercised in using it in the provision of clinical care. This summary normalizes information from multiple sources, and as a consequence, information in this document may materially change the coding, format and clinical context of patient data. In addition, data may be omitted in some cases. CLINICAL DECISIONS SHOULD BE BASED ON THE PRIMARY CLINICAL RECORDS. [employer] [facility] provides no warranty or guarantee of the accuracy or completeness of information in this document.
== END | disposition home or self-care (01) ==
PROVIDERS: PCP Family Medicine; Referring Provider Family Medicine; Visit Provider Family Medicine
DX: R80.9 Proteinuria, unspecified (principal)

== ENCOUNTER → 2025-06-02 | Outpatient (CLI) | payer OTHER, SELFPAY ==
--- OUTSIDE RECORDS SUMMARY | 2025-06-02 09:10 | XMS RPT_ITS | CCD ---
Author Organization [facility] Care Team Providers Care Clinical Pathologist Name Role Phone Lisa Morgan MD Primary Care Provider Lisa Morgan MD Primary Care Provider Timbo LANG PATH THERAPIST.Sabine PRUETT Unavailable Isabelle Mensah PA-C Unavailable Lisa Morgan Primary Care Unavailable Assessment, Health Risk Attending Unavaila Lisa Hagan Primary Care Unavailable Assessment, Health Risk Attending Unavaila ble Assessment, Health Risk Referring Unavaila ble Assessment, Health Risk Attending Unavaila ble Lisa Morgan Primary Care Unavailable Lisa Morgan Primary Care Unavailable Jena Suarez Attending Unavailable Lisa Morgan Referring Unavailable Lisa Morgan Primary Care Unavailable Jena Suarez Attending Unavailable Lisa Morgan Referring Unavailable LISA MORGAN Attending Unavailable LISA MORGAN Primary Care Unavailable SABINE IZQUIERDO Attending Unavailable LISA MORGAN Primary Care Unavailable Medications Current Medications Medication Drug Class(es) Dates Sig (Normalized) Sig (Original) acetaminophen 325 mg oral tablet (2 sources) Start: 05-30-2025 take 2 tablets by mouth every four hours as needed acetaminophen (TYLENOL) 325 mg tablet Take 2 tablets by mouth every 4 hours as needed. 05/30/2025 Active ibuprofen 200 mg oral tablet (2 sources) Nonsteroidal Anti-inflammatory Drug Start: 05-30-2025 take 200-400 mg by mouth every four hours as needed ibuprofen (MOTRIN) 200 mg tablet Take 1-2 tablets by mouth every 4 hours as needed for pain. 05/30/2025 Active predniSONE 20 mg oral tablet (1 source) Start: 06-22-2024 End: 06-26-2024 take 1 tablet by mouth once daily at mealtime predniSONE (DELTASONE) 20 mg tablet Indications: Subacute cough Take 1 tablet by mouth once daily for 4 days. Take daily with food. 4 tablet 06/22/2024 06/26/2024 Active propranolol hydrochloride 10 mg oral tablet (2 sources) beta-Adrenergic Raudel Start: 05-30-2025 take 1 tablet by mouth once daily propranolol (INDERAL) 10 mg tablet Take 1 tablet by mouth once daily. 30 tablet 5 05/30/2025 Active Problems Active Problems Problem Classification Problem Date Documented Da te Episodic/Chronic Diseases of white blood cells (2 sources) Leukopenia; Translations: [Decreased white blood cell count, unspecified] Onset: 05-30-2025 05-30-2025 Chronic Genitourinary symptoms and ill-defined conditions (3 sources) Microscopic hematuria; Translations: [Other microscopic hematuria] Onset: 05-30-2025 06-24-2023 Episodic Headache; including migraine (4 sources) Migraine without aura, not refractory ; Translations: [Chronic migraine without aura, not intractable, without status migrainosus] Onset: 05-30-2025 05-30-2025 Chronic Immunizations and screening for infectious disease (2 sources) Vaccination needed; Translations: [Encounter for immunization] Onset: 05-30-2025 05-30-2025 Episodic Other lower respiratory disease (3 sources) Cough; Translations: [Subacute cough] 05-10-2024 Episodic Other upper respiratory infections (1 source) Pharyngitis; Translations: [Acute pharyngitis, unspecified] 05-10-2024 Episodic Residual codes; unclassified (1 source) Generalized aches and pains; Translations: [Pain, unspecified] 06-24-2023 Episodic Screening and history of mental health and substance abuse codes (2 sources) Encounter for screening examination for other mental health and behavioral disorders; Translations: [Encounter for screening for depression] Onset: 05-30-2025 Episodic Unclassified (1 source) Subacute cough; Translations: [Subacute cough] Onset: 06-22-2024 Past or Other Problems Problem Classification Problem Date Documented Da te Episodic/Chronic Other screening for suspected conditions (not mental disorders or infectious disease) (16 sources) Patient encounter status; Translations: [Encounter for screening for diabetes mellitus] Onset: 07-03-2021 07-03-2021 Episodic Results Test Name Value Interpretation Reference Range Facility [facility] 05-30-2025 CNOV Office Visit ([facility] ) JIA OLSON ([id number]) 1995 M Date Time Provider Department 05/30/25 9:40 AM [facility] During your visit today, we recorded the following information about you: Pulse Respiration Blood pressure Weight 68/minute 16/minute 116/74 72.8 kg Height 1.816 m Lisa Morgan MD 05/31/2025 10:02 PM Signed Chief Complaint Patient presents with: Well Adult HPI Jia Olson is a 29 year old male who presents here today for a Physical. Patient here for annual physical and work physical. Has brought Wellness form to be completed. Patient with Hx of migraines. Had recent labs with leukopenia and proteinuria. Jia reports a long-standing history of frequent headaches, occurring more days than not each week, with onset dating back to middle school or high school. He was previously prescribed amitriptyline approximately 8 years ago, but discontinued it due to cardiac side effects, including palpitations. The headaches are described as sudden in onset, sometimes present upon waking, and are localized to the temporal and ocular regions. He denies experiencing auras, but notes a possible association with dairy consumption, though this is inconsistent. The headaches are usually alleviated with ibuprofen. He also reports a history of nasal fractures and frequent sinus infections during childhood, and experiences daily morning rhinorrhea. Recent lab results from 07/22 showed hematuria and proteinuria, with an increase in proteinuria compared to the previous year. He also notes a trend of decreasing WBC count over the past 4 years, with the most recent count being the lowest. He denies any associated symptoms such as night sweats, unexplained weight loss, or easy bruising. He has a family history of leukemia, with his grandfather having from the disease. Additional lab results showed a total cholesterol level of 170 mg/dL, triglycerides at 45 mg/dL, HDL at 73 mg/dL, and LDL at 157 mg/dL. He reports a family history of hypercholesterolemia, with his father recently starting treatment. He believes his diet is healthy. He denies any recent fevers, visual or auditory changes, dyspnea, hemoptysis, chest pain, palpitations, leg edema, nausea, emesis, diarrhea, heartburn, dysuria, hematuria, polyuria, myalgias, arthralgias, rashes, or tremors. He also denies any changes in heat or cold tolerance, or increased thirst. Past medical history, appointments, medications, allergies reviewed. Previous Medical History PAST MEDICAL HISTORY Diagnosis Date Chronic migraine without aura without status migrainosus, not intractable Migraines Palpitations Previous Surgical History PAST SURGICAL [...] on file prior to visit. Social History SOCIAL HISTORY[1] Review of Symptoms REVIEW OF SYSTEMS GENERAL: No weight loss, malaise or fevers HEENT: No changes in hearing or vision, no nose bleeds. Some sinus congestion especially after his headache's. See HPI NECK: Negative for lumps, goiter, pain and significant neck swelling RESPIRATORY: Negative for cough, hemoptysis, wheezing, COPD, dyspnea or shortness of breath CARDIOVASCULAR: Negative for chest pain, leg swelling, hypertension, CHF or palpitations GI: No nausea, vomiting, or diarrhea and No heartburn or reflux symptoms : No history of dysuria, frequency or blood. MUSCULOSKELETAL: Negative for joint pain or swelling, back pain or muscle pain SKIN: Negative for lesions, rash, and itching PSYCH: Negative for sleep disturbance, mood disorder and recent psychosocial stressors HEMATOLOGY/LYMPHOLOGY: Negative for prolonged bleeding, bruising easily or swollen nodes ENDOCRINE: Negative for cold or heat intolerance, polyuria, polydipsia and goiter NEURO: No history of syncope, paralysis, seizures or tremors SEE HPI EXAM: BP 116/74 (BP Site: Left Arm, BP Position: Sitting, BP Cuff Size: Regular Adult) Pulse 68 Resp 16 Ht 181.6 cm (5' 11.5) Wt 72.8 kg (160 lb 9.6 oz) BMI 22.09 kg/m? Last 5 Encounter Wt Readings: Date: Wt: 05/30/2025 72.8 kg (160 lb 9.6 oz) 06/22/2024 71.7 kg (158 lb) 05/10/2024 73.6 kg (162 lb 4.1 oz) 06/24/2023 71.7 kg (158 lb) 06/04/2022 68.5 kg (151 lb) General Appearance: Well appearing, alert, in no acute distress, well-hydrated, well nourished (more content not included)... Normal [facility] CBC, Employeeon 05-22-2025 Absolute Lymph 1.28 X10 3/uL Normal 0.83-4.51 [facility] Comment on above: Performed By: #### L 500.2900, L100.0200, L400.0100 #### [facility] [address] [place], [address] Absolute Neut 1.8 X10 3/uL Low 2.0-7.7 [facility] Comment on above: Performed By: #### L 500.2900, L100.0200, L400.0100 #### [facility] [address] [place], [address] Basophils/100 WBC (Bld) 1.1 % High 0-1 [facility] Comment on above: Performed By: #### L 500.2900, L100.0200, L400.0100 #### [facility] [address] [place], [address] Eosinophils/100 WBC (Bld) 1.1 % Normal 0-5 [facility] Comment on above: Performed By: #### L 500.2900, L100.0200, L400.0100 #### [facility] [address] [place], [address] Erythrocyte distribution width (RBC) [Ratio] 12.8 % Normal 11.6-14.6 [facility] Comment on above: Performed By: #### L 500.2900, L100.0200, L400.0100 #### [facility] [address] [place], [address] Hematocrit (Bld) [Volume fraction] 42.8 % Normal 40-54 [facility] Comment on above: Performed By: #### L 500.2900, L100.0200, L400.0100 #### [facility] [address] [place], [address] Hemoglobin (Bld) [Mass/Vol] 14.3 g/dL Normal 13.0-16.5 [facility] Comment on above: Performed By: #### L 500.2900, L100.0200, L400.0100 #### [facility] [address] [place], [address] Lymphocytes/100 WBC (Bld) 34.5 % Normal 19-41 [facility] Comment on above: Performed By: #### L 500.2900, L100.0200, L400.0100 #### [facility] [address] [place], [address] MCH (RBC) [Entitic mass] 30.2 pg Normal 27.0-32.0 [facility] Comment on above: Performed By: #### L 500.2900, L100.0200, L400.0100 #### [facility] [address] [place], [address] MCHC (RBC) [Mass/Vol] 33.4 g/dL Normal 32-36 [facility] Comment on above: Performed By: #### L 500.2900, L100.0200, L400.0100 #### [facility] [address] [place], [address] MCV (RBC) [Entitic vol] 90.3 fL Normal 80-94 [facility] Comment on above: Performed By: #### L 500.2900, L100.0200, L400.0100 #### [facility] [address] [place], [address] Monocytes/100 WBC (Bld) 13.7 % High 0-10 [facility] Comment on above: Performed By: #### L 500.2900, L100.0200, L400.0100 #### [facility] [address] [place], [address] Neutrophils/100 WBC (Bld) 49.3 % Normal 47-70 [facility] Comment on above: Performed By: #### L 500.2900, L100.0200, L400.0100 #### [facility] [address] [place], [address] NRBC # 0.00 10 3/uL Normal 0-5 [facility] Comment on above: Performed By: #### L 500.2900, L100.0200, L400.0100 #### [facility] [address] [place], [address] Nucleated RBC (Bld) [#/Vol] 0 10*3/uL Normal 0-5 [facility] Comment on above: Performed By: #### L 500.2900, L100.0200, L400.0100 #### [facility] [address] [place], [address] Platelet mean volume (Bld) [Entitic vol] 10.0 fL Normal 6.2-12.0 [facility] Comment on above: Performed By: #### L 500.2900, L100.0200, L400.0100 #### [facility] [address] [place], [address] Platelets (Bld) [#/Vol] 236 10*3/uL Normal 150-450 [facility] Comment on above: Performed By: #### L 500.2900, L100.0200, L400.0100 #### [facility] [address] [place], [address] RBC (Bld) [#/Vol] 4.74 10*6/uL Normal 4.6-6.2 [facility] Comment on above: Performed By: #### L 500.2900, L100.0200, L400.0100 #### [facility] [address] [place], [address] RDW SD 42.1 fl Normal 35.1-43.9 [facility] Comment on above: Performed By: #### L 500.2900, L100.0200, L400.0100 #### [facility] [address] [place], [address] WBC (Bld) [#/Vol] 3.7 10*3/uL Low 4.4-11.0 [facility] Comment on above: Performed By: #### L 500.2900, L100.0200, L400.0100 #### [facility] [address] [place], [address] Employee [employer] 5 LDH 157 U/L Normal 87-241 [facility] Comment on above: Performed By: #### L 500.2900, L100.0200, L400.0100 #### [facility] [address] [place], [address] Phosphate [Mass/Vol] 3.1 mg/dL Normal 2.7-4.[address] [facility] Comment on above: Performed By: #### L 500.2900, L100.0200, L400.0100 #### [facility] [address] [place], [address] URIC 5.8 mg/dL Normal 3.5-7.2 [facility] Comment on above: Result Comment: The drugs N-Acetylcysteine and Metamizole may falsely depress this assay. Performed By: #### L 500.2900, L100.0200, L400.0100 #### [facility] [address] [place], [address] Urinalysis, Employeeon 05-22 BILIRUBIN URINE Negative Normal Negative [facility] Comment on above: Order Comment: Urine , Random Performed By: #### L 500.2900, L100.0200, L400.0100 #### [facility] [address] [place], [address] Clarity (U) Clear Normal Clear [facility] Comment on above: Order Comment: Urine , Random Performed By: #### L 500.2900, L100.0200, L400.0100 #### [facility] [address] [place], [address] Color (U) Yellow Normal Yellow [facility] Comment on above: Order Comment: Urine , Random Performed By: #### L 500.2900, L100.0200, L400.0100 #### [facility] [address] [place], [address] GLUCOSE, UR Normal Normal Normal [facility] Comment on above: Order Comment: Urine , Random Performed By: #### L 500.2900, L100.0200, L400.0100 #### [facility] [address] [place], [address] KETONE UR Negative Normal Negative [facility] Comment on above: Order Comment: Urine , Random Performed By: #### L 500.2900, L100.0200, L400.0100 #### [facility] [address] [place], [address] LEUK ESTERASE Negative Normal Negative [facility] Comment on above: Order Comment: Urine , Random Performed By: #### L 500.2900, L100.0200, L400.0100 #### [facility] [address] [place], [address] Nitrite Ql (U) Negative Normal Negative [facility] Comment on above: Order Comment: Urine , Random Performed By: #### L 500.2900, L100.0200, L400.0100 #### [facility] [address] [place], [address] OCCULT BLOOD-UR 25 /ul Abnormal Negative [facility] Comment on above: Order Comment: Urine , Random Performed By: #### L 500.2900, L100.0200, L400.0100 #### [facility] [address] [place], [address] pH UR 6.5 Normal 5.0 - 8.0 [facility] Comment on above: Order Comment: Urine , Random Performed By: #### L 500.2900, L100.0200, L400.0100 #### [facility] [address] [place], [address] PROT DIPSTX 30 mg/dl Abnormal Negative [facility] Comment on above: Order Comment: Urine , Random Performed By: #### L 500.2900, L100.0200, L400.0100 #### [facility] [address] [place], [address] SP.GR. DIPSTX 1.015 Normal 1.002-1.030 [facility] Comment on above: Order Comment: Urine , Random Performed By: #### L 500.2900, L100.0200, L400.0100 #### [facility] [address] [place], [address] UROBILI Normal Normal Normal [facility] Comment on above: Order Comment: Urine , Random Performed By: #### L 500.2900, L100.0200, L400.0100 #### [facility] [address] [place], [address] Office Visit Reporton 2024 Office Visit Report [facility] [address] [address] OFFICE VISIT Date of Service: 01/06/25 MR#: [id number] Acct: [id number] Patient: JIA OLSON Rep #: [id number] : 1995 Provider: EZRA Suarez Age/Sex: 29/M Location: [facility] Status: Signed Employer Purchased Covid Test Note: Patient here today for Covid Testing, requested by their Employer. [facility] Billing Sheet Covid Covid Swab-Rapid: Yes 04/21/25 0840 Date Jena Daniela PERIPHERAL EDP EQUIPMENT OPERATOR-C Cosigner Signature: Date (if applicable) CC: Normal [facility] Office Visit Reporton 2024 Office Visit Report [place] [address] [address] OFFICE VISIT Date of Service: 01/06/25 MR#: [id number] Acct: [id number] Patient: JIA OLSON Rep #: [id number] : 1995 Provider: EZRA Suarez Age/Sex: 29/M Location: [facility] Status: Signed Employer Purchased Covid Test Note: Patient here today for Covid Testing, requested by their Employer. Assessment and Plan Assessment and Plan Orders: Orders POC Cepheid Fay, Ganesh, OLIVA Today 01/06/25 1113 Date Jena Daniela PERIPHERAL EDP EQUIPMENT OPERATOR-C Cosigner Signature: Date (if applicable) CC: Normal [facility] Urgent Care Visit Reporton 0 01-06-2025 Urgent Care Visit Report [facility] [address], [address] [place] [address] OFFICE VISIT Date of Service: 01/06/25 MR#: [id number] Acct: [id number] Name: JIA OLSON Rep #: [id number] : 1995 Provider: EZRA Suarez Age/Sex: 29/M Location: [facility] Status: Signed Intake Vital Signs 03/16/24 18:37 [...] Complaint: cough, DOUGLAS, BA, fever, ear pain Medical Detailist Required: No Is patient in pain?: Yes [...] with same s/s 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 PFSH Medical History No active medical problems Surgical [...] Patient/guardian educated (more content not included)... Normal [facility] 06-22-2024 [facility] JIA OLSON ([id number]) 1995 Date Time Provider Department 06/22/24 7:40 AM SABINE IZQUIERDO During your visit today, we recorded the following information about you: Pulse Respiration Blood pressure Weight 98/minute 14/minute 127/83 71.7 kg Sabine Izquierdo, YASMIN.WAIST PLEATER 06/22/2024 8:00 AM Signed Chief Complaint Patient [...] Aged Out Data reviewed Reviewed labs from [facility], [facility] ASSESSMENT/PLAN: 1. Well adult exam - [...] R05.2 - PREDNISONE 20 MG TABLET Sabine Knoble, LANG PATH THERAPIST.WAIST PLEATER Allergies As of Date: 06/22/2024 (No Known Allergies) Date Reviewed: 06/22/2024 Reviewed by: Enriqueta Culp MA - Fully Assessed Reason for Visit: Physical [83] Primary Visit Diagnosis:Well adult exam [Z00.00] Other Visit Diagnoses:Screening for depression [Z13.31] Encounter for screening examination for other mental health and behavioral disorders [Z13.39] Subacute cough [R05.2] Order(s):DEPRESSION SCREENING [] Order #: [id number]: 1 ANXIETY SCREENING [] Order #: [id number]: 1 predniSONE (DELTASONE) 20 mg tabletTake 1 [...] for Encounter Date Provider Department Center 06/22/2024 [id number] IZQUIERDO [facility] Encounter Status:Closed by SABINE IZQUIERDO on 06/22/24 Normal [facility] CBC, [employer] 06-21-2024 Absolute Lymph 1.46 X10 3/uL Normal 0.83-4.51 [facility] Comment on above: Performed By: #### L 400.0100, L100.0200, L500.2900 #### [facility] [address] [place], [place], [id number] Absolute Neut 1.9 X10 3/uL Low 2.0-7.7 [facility] Comment on above: Performed By: #### L 400.0100, L100.0200, L500.2900 #### [facility] [address] [place], [address] Basophils/100 WBC (Bld) 1.0 % Normal 0-1 [facility] Comment on above: Performed By: #### L 400.0100, L100.0200, L500.2900 #### [facility] [address] [place], [address] Eosinophils/100 WBC (Bld) 2.0 % Normal 0-5 [facility] Comment on above: Performed By: #### L 400.0100, L100.0200, L500.2900 #### [facility] [address] [place], [address] Erythrocyte distribution width (RBC) [Ratio] 12.0 % Normal 11.6-14.6 [facility] Comment on above: Performed By: #### L 400.0100, L100.0200, L500.2900 #### [facility] [address] [place], [address] Hematocrit (Bld) [Volume fraction] 45.8 % Normal 40-54 [facility] Comment on above: Performed By: #### L 400.0100, L100.0200, L500.2900 #### [facility] [address] [place], [address] Hemoglobin (Bld) [Mass/Vol] 15.1 g/dL Normal 13.0-16.5 [facility] Comment on above: Performed By: #### L 400.0100, L100.0200, L500.2900 #### [facility] [address] [place], [address] Lymphocytes/100 WBC (Bld) 36.5 % Normal 19-41 [facility] Comment on above: Performed By: #### L 400.0100, L100.0200, L500.2900 #### [facility] [address] [place], [address] MCH (RBC) [Entitic mass] 29.7 pg Normal 27.0-32.0 [facility] Comment on above: Performed By: #### L 400.0100, L100.0200, L500.2900 #### [facility] [facility] [address] [place], [address] MCHC (RBC) [Mass/Vol] 33.0 g/dL Normal 32-36 [facility] Comment on above: Performed By: #### L 400.0100, L100.0200, L500.2900 #### [facility] [address] [place], [address] MCV (RBC) [Entitic vol] 90.0 fL Normal 80-94 [facility] Comment on above: Performed By: #### L 400.0100, L100.0200, L500.2900 #### [facility] [address] [place], [address] Monocytes/100 WBC (Bld) 13.5 % High 0-10 [facility] Comment on above: Performed By: #### L 400.0100, L100.0200, L500.2900 #### [facility] [address] [place], [address] Neutrophils/100 WBC (Bld) 46.5 % Low 47-70 [facility] Comment on above: Performed By: #### L 400.0100, L100.0200, L500.2900 #### [facility] [address] [place], [address] NRBC # 0.00 10 3/uL Normal 0-5 [facility] Comment on above: Performed By: #### L 400.0100, L100.0200, L500.2900 #### [facility] [address] [place], [address] Nucleated RBC (Bld) [#/Vol] 0 10*3/uL Normal 0-5 [facility] Comment on above: Performed By: #### L 400.0100, L100.0200, L500.2900 #### [facility] [address] [place], [address] Platelet mean volume (Bld) [Entitic vol] 9.6 fL Normal 6.2-12.0 [facility] Comment on above: Performed By: #### L 400.0100, L100.0200, L500.2900 #### [facility] [address] [place], [address] Platelets (Bld) [#/Vol] 240 10*3/uL Normal 150-450 [facility] Comment on above: Performed By: #### L 400.0100, L100.0200, L500.2900 #### [facility] [address] [place], [address] RBC (Bld) [#/Vol] 5.09 10*6/uL Normal 4.6-6.2 [facility] Comment on above: Performed By: #### L 400.0100, L100.0200, L500.2900 #### [facility] [address] [place], [address] RDW SD 39.5 fl Normal 35.1-43.9 [facility] Comment on above: Performed By: #### L 400.0100, L100.0200, L500.2900 #### [facility] [address] [place], [address] WBC (Bld) [#/Vol] 4.0 10*3/uL Low 4.4-11.0 [facility] Comment on above: Performed By: #### L 400.0100, L100.0200, L500.2900 #### [facility] [address] [place], [address] Employee Profile[employer] 4 Albumin [Mass/Vol] 4.1 g/dL Normal 3.2-5.0 [facility] Comment on above: Performed By: #### L 400.0100, L100.0200, L500.2900 #### [facility] [address] [place], [address] Albumin/Globulin [Mass ratio] 1.4 {ratio} Normal 0.9-2.4 [facility] Comment on above: Performed By: #### L 400.0100, L100.0200, L500.2900 #### [facility] [address] [place], [address] ALK P 62 U/L Normal 45-117 [facility] Comment on above: Performed By: #### L 400.0100, L100.0200, L500.2900 #### [facility] [address] [place], [address] ALT [Catalytic activity/Vol] 26 U/L Normal 16-61 [facility] Comment on above: Performed By: #### L 400.0100, L100.0200, L500.2900 #### [facility] [address] [place], [address] AST [Catalytic activity/Vol] 13 U/L Low 15-37 [facility] Comment on above: Performed By: #### L 400.0100, L100.0200, L500.2900 #### [facility] [address] [place], [address] Bilirubin [Mass/Vol] 0.70 mg/dL Normal 0.20-1.[address] [facility] Comment on above: Result Comment: For patients on eltrombopag therapy, use of Dimension [place] TBIL is not recommended. Performed By: #### L 400.0100, L100.0200, L500.2900 #### [facility] [address] [place], [address] Bilirubin.direct [Mass/Vol] 0.18 mg/dL Normal 0.00-0.30 [facility] Comment on above: Performed By: #### L 400.0100, L100.0200, L500.2900 #### [facility] [address] [place], [address] BUN/CRE 19.0 RATIO Normal 10-20 [facility] Comment on above: Performed By: #### L 400.0100, L100.0200, L500.2900 #### [facility] [address] [place], [address] CA,Total 9.4 mg/dL Normal 8.5-10.1 [facility] Comment on above: Performed By: #### L 400.0100, L100.0200, L500.2900 #### [facility] [address] [place], [address] Chloride [Moles/Vol] 107 mmol/L Normal 98-[address] [facility] Comment on above: Performed By: #### L 400.0100, L100.0200, L500.2900 #### [facility] [address] [place], [address] CHOL:HDL 2.30 Normal [facility] Comment on above: Performed By: #### L 400.0100, L100.0200, L500.2900 #### [facility] [address] [place], [address] Cholesterol [Mass/Vol] 186 mg/dL Normal 200 [facility] Comment on above: Result Comment: <200 mg/dL Desirable 200-240 mg/dL Borderline >240 mg/dL High Risk Performed By: #### L 400.0100, L100.0200, L500.2900 #### [facility] [address] [place], [address] Cholesterol in HDL [Mass/Vol] 81 mg/dL Normal [facility] Comment on above: Result Comment: The drugs N-Acetylcysteine and Metamizole may falsely depress this assay. Reference Range HDL <40 mg/dL Low HDL Cholesterol HDL >or= 60 mg/dL High HDL Cholesterol Performed By: #### L 400.0100, L100.0200, L500.2900 #### [facility] [address] [place], [address] Cholesterol in LDL [Mass/Vol] 87 mg/dL Normal 0-130 [facility] Comment on above: Performed By: #### L 400.0100, L100.0200, L500.2900 #### [facility] [address] [place], [address] Cholesterol in VLDL [Mass/Vol] 18 mg/dL Normal 5-40 [facility] Comment on above: Performed By: #### L 400.0100, L100.0200, L500.2900 #### [facility] [address] [place], [address] CO2 [Moles/Vol] 27.0 mmol/L Normal 21.0-32.0 [facility] Comment on above: Performed By: #### L 400.0100, L100.0200, L500.2900 #### [facility] [address] [place], [address] Creatinine [Mass/Vol] 0.74 mg/dL Normal 0.70-1.30 [facility] Comment on above: Result Comment: The validity of the calculated GFR GFRAA in patients over 70 years has not been determined. Clinical correlation is essential. Performed By: #### L 400.0100, L100.0200, L500.2900 #### [facility] [address] [place], [address] EST GFR - AA 162 mL/min Normal >60 [facility] Comment on above: Result Comment: Afri can [place] GFR Calc Performed By: #### L 400.0100, L100.0200, L500.2900 #### [facility] [address] [place], [address] GAP 6 Normal 5-15 [facility] Comment on above: Performed By: #### L 400.0100, L100.0200, L500.2900 #### [facility] [address] [place], [address] GFR/1.73 sq M.predicted among non-blacks MDRD (S/P/Bld) [Vol rate/Area] 134 mL/min/{1.73_m2} Normal >60 [facility] Comment on above: Result Comment: Non- GFR Calc Performed By: #### L 400.0100, L100.0200, L500.2900 #### [facility] [address] [place], [address] Globulin (S) [Mass/Vol] 2.9 g/dL Normal 2.2-4.2 [facility] Comment on above: Performed By: #### L 400.0100, L100.0200, L500.2900 #### [facility] [address] [place], [address] Glucose [Mass/Vol] 86 mg/dL Normal 74-106 [facility] Comment on above: Performed By: #### L 400.0100, L100.0200, L500.2900 #### [facility] [address] [place], [address] LDH 147 U/L Normal 87-241 [facility] Comment on above: Performed By: #### L 400.0100, L100.0200, L500.2900 #### [facility] [address] [place], [address] Phosphate [Mass/Vol] 2.8 mg/dL Normal 2.5-4.[address] [facility] Comment on above: Performed By: #### L 400.0100, L100.0200, L500.2900 #### [facility] [address] [place], [address] Potassium [Moles/Vol] 4.3 mmol/L Normal 3.5-5.1 [facility] Comment on above: Performed By: #### L 400.0100, L100.0200, L500.2900 #### [facility] [address] [place], [address] Sodium [Moles/Vol] 140 mmol/L Normal 136-145 [facility] Comment on above: Performed By: #### L 400.0100, L100.0200, L500.2900 #### [facility] [address] [place], [address] T PROT 7.0 g/dL Normal 6.4-8.2 [facility] Comment on above: Performed By: #### L 400.0100, L100.0200, L500.2900 #### [facility] [address] [place], [address] Triglyceride [Mass/Vol] 88 mg/dL Normal [facility] Comment on above: Result Comment: The drugs N-Acetylcysteine and Metamizole may falsely depress this assay. Serum Triglycerides Reference Interval Normal <150 mg/dL Borderline high 150 - 199 mg/dL High 200 - 499 mg/dL Very High > or = 500 mg/dL Performed By: #### L 400.0100, L100.0200, L500.2900 #### [facility] [address] [place], [address] Urea nitrogen [Mass/Vol] 14 mg/dL Normal 7-18 [facility] Comment on above: Performed By: #### L 400.0100, L100.0200, L500.2900 #### [facility] [address] [place], [address] URIC 5.1 mg/dL Normal 3.5-7.2 [facility] Comment on above: Result Comment: The drugs N-Acetylcysteine and Metamizole may falsely depress this assay. Performed By: #### L 400.0100, L100.0200, L500.2900 #### [facility] [address] [place], [address] Urinalysis, Employeeon 06-21 BILIRUBIN URINE Negative Normal Negative [facility] Comment on above: Order Comment: CLEAN CATCH Performed By: #### L 400.0100, L100.0200, L500.2900 #### [facility] [address] [place], [address] Clarity (U) Sl. Cloudy Normal Clear [facility] Comment on above: Order Comment: CLEAN CATCH Performed By: #### L 400.0100, L100.0200, L500.2900 #### [facility] [address] [place], [address] Color (U) Yellow Normal Yellow [facility] Comment on above: Order Comment: CLEAN CATCH Performed By: #### L 400.0100, L100.0200, L500.2900 #### [facility] [address] [place], [address] GLUCOSE, UR Normal Normal Normal [facility] Comment on above: Order Comment: CLEAN CATCH Performed By: #### L 400.0100, L100.0200, L500.2900 #### [facility] [address] [place], [address] KETONE UR Negative Normal Negative [facility] Comment on above: Order Comment: CLEAN CATCH Performed By: #### L 400.0100, L100.0200, L500.2900 #### [facility] [address] [place], [address] LEUK ESTERASE Negative Normal Negative [facility] Comment on above: Order Comment: CLEAN CATCH Performed By: #### L 400.0100, L100.0200, L500.2900 #### [facility] [address] [place], [address] Nitrite Ql (U) Negative Normal Negative [facility] Comment on above: Order Comment: CLEAN CATCH Performed By: #### L 400.0100, L100.0200, L500.2900 #### [facility] [address] [place], [address] OCCULT BLOOD-UR Negative Normal Negative [facility] Comment on above: Order Comment: CLEAN CATCH Performed By: #### L 400.0100, L100.0200, L500.2900 #### [facility] [address] [place], [address] pH UR 7.0 Normal 5.0 - 8.0 [facility] Comment on above: Order Comment: CLEAN CATCH Performed By: #### L 400.0100, L100.0200, L500.2900 #### [facility] [address] [place], [address] PROT DIPSTX 15 mg/dl Abnormal Negative [facility] Comment on above: Order Comment: CLEAN CATCH Performed By: #### L 400.0100, L100.0200, L500.2900 #### [facility] [address] [place], [address] SP.GR. DIPSTX 1.010 Normal 1.002-1.030 [facility] Comment on above: Order Comment: CLEAN CATCH Performed By: #### L 400.0100, L100.0200, L500.2900 #### [facility] [address] [place], [address] UROBILI Normal Normal Normal [facility] Comment on above: Order Comment: CLEAN CATCH Performed By: #### L 400.0100, L100.0200, L500.2900 #### [facility] [address] [place], [address] STREP A MOLECULAR (POC)on Procedural Control Valid [facility] Strep A (POCT) Negative Negative [facility] XR Chest PA and Lateralon IMPRESSION: No acute radiographic abnormality. Airport Ramp Attendant: PSCB Transcribe Date/Time: May 10 2024 8:37A Dictated by : GRECIA SANTANA DO This examination was interpreted and the report reviewed and electronically signed by: GRECIA SANTANA DO on May 10 2024 8:38AM [facility] DIVISION OF RADIOLOGY * * *Final Report* [...] soft tissues: Unremarkable. DIVISION OF RADIOLOGY Provider, [facility] - 05/10/2024 * * *Final Report* * [...] Unremarkable. IMPRESSION IMPRESSION: No acute radiographic abnormality. Airport Ramp Attendant: JOEL Transcribe Date/Time: May 10 2024 8:37A Dictated by : GRECIA SANTANA DO This examination was interpreted and the report reviewed and electronically signed by: GRECIA SANTANA DO on May 10 2024 8:38AM EST [facility] Radiology Study observation (narrative) [facility] XR Chest PA and LateralOrder ed By: [facility] Provider on 05-10-2024 [facility] LIPID PANEL (EXTERNAL)on Cholesterol [Mass/Vol] 194 mg/dL 0 - 200 MG/DL [facility] HDC-L 84 mg/dL Abnormal 41 mg/dL [facility] LDH 150 [facility] LDL Chol, calculated 96 MG/DL 130 MG/DL [facility] Triglyceride [Mass/Vol] 68 mg/dL 149 mg/dL [facility] VLDL 14 Ratio 10 - 38 Ratio [facility] LIPID PANEL (OUTSIDE)on 05-21 Cholesterol [Mass/Vol] 192 mg/dL [facility] Cholesterol in HDL [Mass/Vol] 83 mg/dL [facility] Cholesterol in LDL [Mass/Vol] 97 mg/dL [facility] LDH 161 [facility] Non-HDL Cholesterol [facility] TC:HDL Ratio 2.30 [facility] Triglyceride [Mass/Vol] 62 mg/dL [facility] VLDL Cholesterol 12 [facility] Vital Signs Date Time Vital Sign Value Performing Clinician Karlos dinero 05-30-2025 09:49-0400 Body height 181.6 cm Lisa Morgan MD Work Phone: [facility] 05-30-2025 09:49-0400 Body mass index (BMI) [Ratio] 22.09 kg/m2 Lisa Morgan MD Work Phone: [facility] 05-30-2025 09:49-0400 Body weight 72.85 kg Lisa Morgan MD Work Phone: [facility] 09-10-2025 09:49-0400 Diastolic blood pressure 74 mm[Hg] Lisa Morgan MD Work Phone: [facility] 05-30-2025 09:49-0400 Heart rate 68 /min Lisa Morgan MD Work Phone: [facility] 05-30-2025 09:49-0400 Respiratory rate 16 /min Lisa Morgan MD Work Phone: [facility] 05-30-2025 09:49-0400 Systolic blood pressure 116 mm[Hg] Lisa Morgan MD Work Phone: [facility] 06-22-2024 07:41-0400 Body mass index (BMI) [Ratio] 20.6 kg/m2 Sabine Izquierdo APRN.WAIST PLEATER Work Phone: [facility] 06-22-2024 07:41-0400 Body weight 71.67 kg Sabine Izquierdo APRN.WAIST PLEATER Work Phone: [facility] 06-22-2024 07:41-0400 Diastolic blood pressure 83 mm[Hg] Sabine Izquierdo APRN.WAIST PLEATER Work Phone: [facility] 06-22-2024 07:41-0400 Heart rate 98 /min Sabine Izquierdo APRN.WAIST PLEATER Work Phone: [facility] 06-22-2024 07:41-0400 Respiratory rate 14 /min Sabine Izquierdo APRN.WAIST PLEATER Work Phone: [facility] 06-22-2024 07:41-0400 Systolic blood pressure 127 mm[Hg] Sabine Izquierdo APRN.WAIST PLEATER Work Phone: [facility] 05-10-2024 07:28-0400 Body mass index (BMI) [Ratio] 21.16 kg/m2 Lisa Miller APRN.WAIST PLEATER Work Phone: [facility] 05-10-2024 07:28-0400 Body temperature 97.39 [degF] Lisa Miller APRN.WAIST PLEATER Work Phone: [facility] 05-10-2024 07:28-0400 Body weight 73.6 kg Lisa [facility] LANG PATH THERAPIST.WAIST PLEATER Work Phone: [facility] 05-10-2024 07:28-0400 Diastolic blood pressure 74 mm[Hg] [facility] LANG PATH THERAPIST.WAIST PLEATER Work Phone: [facility] 05-10-2024 07:28-0400 Heart rate 65 /min [facility] LANG PATH THERAPIST.WAIST PLEATER Work Phone: [facility] 05-10-2024 07:28-0400 Respiratory rate 16 /min [facility] LANG PATH THERAPIST.WAIST PLEATER Work Phone: [facility] 05-10-2024 07:28-0400 SaO2% (BldA) [Mass fraction] 98 % [facility] LANG PATH THERAPIST.WAIST PLEATER Work Phone: [facility] 05-10-2024 07:28-0400 Systolic blood pressure 112 mm[Hg] [facility] LANG PATH THERAPIST.WAIST PLEATER Work Phone: [facility] 06-24-2023 12:33-0400 Body height 186.5 cm Isabelle Mensah PA-C Work Phone: [facility] 06-24-2023 12:33-0400 Body temperature 100.4 [degF] Isabelle Mensah PA-C Work Phone: [facility] 06-24-2023 12:33-0400 Body weight 71.67 kg Isabelle Mensah PA-C Work Phone: [facility] 06-24-2023 12:33-0400 Diastolic blood pressure 70 mm[Hg] Isabelle Mensah PA-C Work Phone: [facility] 06-24-2023 12:33-0400 Heart rate 97 /min Isabelle Mensah PA-C Work Phone: [facility] 06-24-2023 12:33-0400 Respiratory rate 18 /min Isabelle Mensah PA-C Work Phone: [facility] 06-24-2023 12:33-0400 Systolic blood pressure 102 mm[Hg] Isabelle Mensah PA-C Work Phone: [facility] 06-04-2022 11:58-0400 Body height 188 cm Isabelle Mensah PA-C Work Phone: [facility] 06-04-2022 11:58-0400 Body temperature 97.59 [degF] Isabelle Mensah PA-C Work Phone: [facility] 06-04-2022 11:58-0400 Body weight 68.49 kg Isabelle Mensah PA-C Work Phone: [facility] 06-04-2022 11:58-0400 Diastolic blood pressure 72 mm[Hg] Isabelle Mensah PA-C Work Phone: [facility] 06-04-2022 11:58-0400 Heart rate 80 /min Isabelle Mensah PA-C Work Phone: [facility] 06-04-2022 11:58-0400 Respiratory rate 16 /min Isabelle Mensah PA-C Work Phone: [facility] 06-04-2022 11:58-0400 Systolic blood pressure 110 mm[Hg] Isabelle Mensah PA-C Work Phone: [facility] Encounters Encounter Date Encounter Type Care Provider Facility Start: 2025 End: 2025 ambulatory Lisa Morgan MD Work Phone: [facility] [place] Comment on above: Guidance with Lab te sts/Not sleeping Start: 05-30-2025 Encounter for genera l adult medical examination without abnormal findings LISA MORGAN [facility] Start: 05-30-2025 End: 05-30-2025 Patient encounter procedure Lisa Morgan MD Work Phone: [facility] [place] Comment on above: Well adult exam (Irma turpin Dx); Chronic migraine without aura without status migrainosus, not intractable; Leukopenia, unspecified type; Proteinuria, unspecified type; Need for vaccination; Encounter for screening examination for other mental health and behavioral disorders; Screening for depression Start: 05-30-2025 End: 05-30-2025 Patient encounter status Lisa Morgan MD Work Phone: [facility] Work Phone: Start: 05-30-2025 End: 05-30-2025 ambulatory LISA MORGAN Facility:[facility] Start: 05-22-2025 End: 05-22-2025 Chart abstracting Lisa Morgan MD Work Phone: [facility] Start: 05-22-2025 ambulatory Health Risk Assessment Facility:[facility] Start: 01-06-2025 End: 01-06-2025 ambulatory [facility] Facility:[facility] Start: 07-21-2024 ambulatory [facility] Facility :[facility] Start: 06-22-2024 End: 06-22-2024 Patient encounter procedure Sabine Izquierdo APRN.WAIST PLEATER Work Phone: [facility] Comment on above: Well adult exam ([facility] Dx); Screening for depression; Encounter for screening examination for other mental health and behavioral disorders; Subacute cough Start: 06-22-2024 End: 06-22-2024 Patient encounter status Sabine Izquierdo APRN.WAIST PLEATER Work Phone: [facility] Work Phone: Start: 06-22-2024 End: 06-22-2024 ambulatory SABINE IZQUIERDO Facility:[facility] Start: 06-21-2024 End: 06-21-2024 [facility] Facility:[facility] Start: 05-10-2024 End: 05-10-2024 Telephone encounter Lisa Miller APRN.WAIST PLEATER Work Phone: [facility] Comment on above: Results Start: 05-10-2024 End: 05-10-2024 Subsequent hospital visit by physician [facility] [place] Work Phone: Radiology Comment on above: Subacute cough [R05. 2] Start: 05-10-2024 End: 05-10-2024 Office outpatient visit 15 minutes Lisa Miller APRN.WAIST PLEATER Work Phone: [facility] Comment on above: Pharyngitis, unspeci fied etiology (Primary Dx); Subacute cough Start: 03-17-2024 Chart abstracting Lisa kelly MD Work Phone: [facility] [place] Comment on above: ER Discharge Summary Start: 06-24-2023 End: 06-24-2023 Patient encounter procedure Isabelle Mensah PA-C Work Phone: [facility] [place] Comment on above: Well adult exam (Irma dyana Dx); Microscopic hematuria; Body aches Start: 06-24-2023 End: 06-24-2023 Patient encounter status Isabelle Mensah PA-C Work Phone: [facility] Work Phone: Start: 06-23-2023 Chart abstracting Lisa kelly MD Work Phone: [facility] [place] Comment on above: Outside [id number] Ordered Start: 06-04-2022 Chart abstracting Lisa kelly MD Work Phone: [facility] [place] Comment on above: Outside Lab Results (Patient employee health lab results) Start: 06-04-2022 End: 06-04-2022 Patient encounter procedure Isabelle Mensah PA-C Work Phone: [facility] [place] Comment on above: Well adult exam Start: 06-04-2022 End: 06-04-2022 Patient encounter status Isabelle Mensah PA-C Work Phone: [facility] Work Phone: Procedures Date Procedure Procedure Detail Performing Clinician Start: 05-30-2025 Adult depression screening assessment Lisa Morgan MD Work Phone: Start: 06-22-2024 Adult depression screening assessment Sabine Izquierdo LANG PATH THERAPIST.WAIST PLEATER Work Phone: Start: 05-10-2024 Radiologic exam ches t 2 views Lisa Miller APRN.WAIST PLEATER Work Phone: Start: 05-10-2024 STREP A MOLECULAR (POC) Lisa Miller APRN.WAIST PLEATER Work Phone: Start: 06-23-2023 Lipid panel [facility] Start: 06-04-2022 Lipid panel [facility] Start: 06-04-2022 Adult depression screening assessment Lisa Morgan MD Work Phone: Plan of Treatment Date Care Activity Detail Author Start: 05-30-2035 Urine microalbumin profile DTaP,Tdap,Td Vaccine (8 - Td or Tdap) [facility] Start: 05-30-2026 Anxiety Screening Anxiety Screening [facility] Start: 05-30-2026 Depression Screening Depression Scre ing [facility] Start: 05-22-2026 End: 05-22-2026 Patient encounter procedure 05/22/2026 7:00 AM EDT Office Visit [facility] [address] [place], [place] [id number] Lisa Morgan MD [address] [place] [id number] Wellness [facility] Comment on above: Wellness Start: 03-19-2026 Influenza vaccination Influenza Vacc ine (#1) [facility] Comment on above: Postponed from 05/21 (Currently Scheduled) Start: 06-22-2025 Anxiety Screening Anxiety Screening [facility] Start: 06-22-2025 Depression Screening Depression Scre ing [facility] Start: 05-30-2025 End: 08-29-2025 CBC W Auto Differential panel - Blood COMPLETE BLOOD COUNT AND DIFFERENTIAL Lab Routine Leukopenia, unspecified type Expected: 05/30/2025, Expires: 08/29/2025 [facility] Work Phone: Comment on above: Expected: 05/30/2025 , Expires: 08/29/2025 Start: 05-30-2025 End: 08-29-2025 KAPPA/GASTON,FREE,SER KAPPA/GASTON,FREE,SER Lab Routine Proteinuria, unspecified type Expected: 05/30/2025, Expires: 08/29/2025 [facility] Comment on above: Expected: 05/30/2025 , Expires: 08/29/2025 Start: 05-30-2025 End: 08-29-2025 PROTEIN ELECT RND UR W/INTERP PROTEIN ELECT RND UR W/INTERP Lab Routine Proteinuria, unspecified type Expected: 05/30/2025, Expires: 08/29/2025 [facility] Comment on above: Expected: 05/30/2025 , Expires: 08/29/2025 Start: 05-30-2025 End: 08-29-2025 PROTEIN ELECTROPHORESIS SERUM W/INTERP PROTEIN ELECTROPHORESIS SERUM W/INTERP Lab Routine Proteinuria, unspecified type Expected: 05/30/2025, Expires: 08/29/2025 [facility] Comment on above: Expected: 05/30/2025 , Expires: 08/29/2025 Start: 05-30-2025 End: 05-30-2025 Patient encounter procedure 05/30/2025 9:40 AM EDT Office Visit [facility] [address] [place], [place] [address] Lisa Morgan MD [address] [place], [place] [id number] Work Physical. [facility] Comment on above: Work Physical. Start: 05-21-2025 Influenza vaccination Influenza Vacc ine (#1) [facility] Start: 06-24-2024 Covid-19 Vaccine ( season) Covid-19 Vaccine ( - season) [facility] Comment on above: Postponed from 05/21 (Declined at this time) Start: 06-24-2024 Covid-19 Vaccine (2 - Booster for [place] series) Covid-19 Vaccine (2 - Booster for [place] series) [facility] Comment on above: Postponed from 07/31 (Declined at this time) Start: 06-24-2024 Hepatitis C Screening Hepatitis C [facility] Comment on above: Postponed from 06/01 (Declined at this time) Start: 06-24-2024 Hepatitis C screening Hepatitis C [facility] Comment on above: Postponed from 06/01 (Declined at this time) Start: 06-24-2024 HIV Screening HIV Screening [facility] Comment on above: Postponed from 06/01 (Declined at this time) Start: 06-24-2024 HIV screening HIV Screening [facility] Comment on above: Postponed from 06/01 (Declined at this time) Start: 05-21-2024 Covid-19 Vaccine ( season) Covid-19 Vaccine ( season) [facility] Start: 05-21-2024 Covid-19 Vaccine ( season) Covid-19 Vaccine ( season) [facility] Start: 05-21-2024 Influenza vaccination Influenza Vacc ine (#1) [facility] Start: 03-19-2024 Influenza vaccination Influenza Vacc ine (#1) [facility] Comment on above: Postponed from 05/21 (Declined at this time) Start: 09-20-2023 Behavioral Health Screening Behavioral Health Screening [facility] Start: 09-19-2023 Depression Assessment Depression Ass essment [facility] Comment on above: Postponed from 09/20 (Declined at this time) Start: 06-24-2023 End: 08-24-2023 Urinalysis complete panel - Urine URINALYSIS, WITH MICROSCOPIC Lab Routine Microscopic hematuria Expected: 06/24/2023, Expires: 08/24/2023 [facility] Work Phone: Comment on above: Expected: 06/24/2023 , Expires: 08/24/2023 Start: 06-04-2023 Adult depression screening assessment DEPRESSION SCREENING [facility] Start: 07-03-2022 HEPATITIS C SCREENING HEPATITIS C [facility] Comment on above: Postponed from 06/01 (Declined at this time) Start: 07-03-2022 HIV SCREENING HIV SCREENING [facility] Comment on above: Postponed from 06/01 (Declined at this time) Start: 2022 HPV Vaccine (1 - 3-d ose SCDM series) HPV Vaccine (1 - 3-dose SCDM series) [facility] Start: 05-21-2022 Influenza vaccination INFLUENZA (#1) [facility] Start: 01-26-2022 Urine microalbumin profile [facility] Start: 07-31-2021 COVID-19 VACCINE (2 - Booster for [place] series) COVID-19 VACCINE (2 - Booster for [place] series) [facility] Start: 2013 Anxiety Screening Anxiety Screening [facility] Start: 2013 Depression Screening Depression Scre ening [facility] Start: 2013 Hepatitis C screening Hepatitis C Nv roula [facility] Start: 2013 HIV screening HIV Screening [facility] Protein [Mass/time] in 24 hour Urine PROTEIN, 24 HOUR URINE Lab Routine Proteinuria, unspecified type Ordered: 05/30/2025 [facility] Comment on above: Ordered: 05/30/2025 Immunizations Immunization Date Immunization Notes Care Provider Fa cility 05-30-2025 tetanus toxoid, redu liza diphtheria toxoid, and acellular pertussis vaccine, adsorbed Lisa Morgan MD Work Phone: [facility] 08-03-2024 influenza virus vaccine, unspecified formulation Lisa Morgan MD Work Phone: [facility] 08-05-2023 influenza virus vaccine, unspecified formulation Lisa Miller APRN.WAIST PLEATER Work Phone: [facility] 08-05-2022 influenza virus vaccine, unspecified formulation Lisa Morgan MD Work Phone: [facility] 08-11-2021 influenza, seasonal, injectable, preservative free Lsia Morgan MD Work Phone: [facility] 06-05-2021 COVID-19 vaccine ([place]) Lisa Morgan MD Work Phone: [facility] 07-08-2020 influenza, seasonal, injectable, preservative free Lisa Morgan MD Work Phone: [facility] 07-24-2019 influenza, seasonal, injectable, preservative free Lisa Morgan MD Work Phone: [facility] 07-04-2018 influenza, seasonal, injectable, preservative free Lisa Morgan MD Work Phone: [facility] 03-02-2018 hepatitis B vaccine, adult dosage Lisa Morgan MD Work Phone: [facility] 06-24-2012 varicella virus vaccine Freddie Morgan MD Work Phone: [facility] 05-20-2012 varicella virus vaccine Freddie Morgan MD Work Phone: [facility] 05-09-2012 tetanus toxoid, redu liza diphtheria toxoid, and acellular pertussis vaccine, adsorbed Lisa Morgan MD Work Phone: [facility] 04-08-2001 diphtheria, tetanus toxoids and acellular pertussis vaccine, unspecified formulation Lisa Morgan MD Work Phone: [facility] 04-08-2001 measles, mumps and rubella virus vaccine Lisa Morgan MD Work Phone: [facility] 04-08-2001 poliovirus vaccine, inactivated Lisa Morgan MD Work Phone: [facility] 01-04-1997 diphtheria, tetanus toxoids and acellular pertussis vaccine, unspecified formulation Lisa Morgan MD Work Phone: [facility] 01-04-1997 haemophilus influenz ae type b vaccine, PRP-T conjugate Lisa Morgan MD Work Phone: [facility] 06-08-1996 measles, mumps and rubella virus vaccine Lisa Morgan MD Work Phone: [facility] 1995 DTP-Haemophilus influenzae type b conjugate vaccine Lisa Morgan MD Work Phone: [facility] 1995 hepatitis B vaccine, pediatric or pediatric/adolescent dosage Lisa Morgan MD Work Phone: [facility] 1995 trivalent poliovirus vaccine, live, oral Lisa Morgan MD Work Phone: [facility] 1995 DTP-Haemophilus influenzae type b conjugate vaccine Lisa Morgan MD Work Phone: [facility] 1995 trivalent poliovirus vaccine, live, oral Lisa Morgan MD Work Phone: [facility] 1995 DTP-Haemophilus influenzae type b conjugate vaccine Lisa Morgan MD Work Phone: [facility] 1995 hepatitis B vaccine, pediatric or pediatric/adolescent dosage Lisa Morgan MD Work Phone: [facility] 1995 trivalent poliovirus vaccine, live, oral Lisa Morgan MD Work Phone: [facility] 1995 hepatitis B vaccine, pediatric or pediatric/adolescent dosage Lisa Morgan MD Work Phone: [facility] Payers Date Payer Category Payer Unknown [id number] 2024 Self-pay 2022 Private Health Insurance [id number] 2022 Private Health Insurance [id number] 2020 Unknown MMO MMO TPA [id number] 2020-Present [address] [place] [address] PPO [id number] Unknown [id number] 2 Unknown [id number] 2 Unknown [id number] 2 Unknown [id number] 2 Unknown [id number] 2 Social History Date Type Detail Facility Start: 07-03-2021 End: 06-24-2023 Tobacco smoking status AZIS Never smoked tobacco [facility] Start: 07-03-2021 End: 06-24-2023 Tobacco use and exposure Smokeless tobacco non-user [facility] Start: 06-04-2022 End: 05-30-2025 Alcohol intake Current drinker of alcohol (finding) [facility] Start: 06-04-2022 History SDOH Alcohol Frequency 3 [facility] Start: 06-04-2022 History SDOH Alcohol Std Drinks 1 [facility] Start: 07-03-2021 History SDOH Alcohol Comment rare (2x/month) [facility] Start: 06-04-2022 History SDOH Social Connections Phone 4 [facility] Start: 06-04-2022 History SDOH Social Connections Get Together 5 [facility] Start: 06-04-2022 History SDOH Transport Med 2 [facility] Start: 1995 Sex Assigned At Not on file [facility] Start: 05-25-2022 End: 06-04-2022 Exposure to SARS-CoV-2 (event) Not sure [facility] Start: 06-04-2022 End: 06-24-2023 History of Social function [employer] Start: 06-04-2022 End: 06-24-2023 Social connection and isolation panel [facility] Start: 08-21-2012 Active Member of [facility] bs or Organizations Not on file [facility] Are you now , , , , never or living with a partner? [facility] How often to you hav e a drink containing alcohol? 2-4 times a month [facility] How many standard dr inks containing alcohol do you have on a typical day? 1 or 2 [facility] How often do you hav e 6 or more drinks on 1 occasion? Never [facility] Do you feel stress - tense, restless, nervous, or anxious, or unable to sleep at night because your mind is troubled all the time - these days [OSQ] Not at all [facility] (I/We) worried wheth er (my/our) food would run out before (I/we) got money to buy more. Never true [facility] In the past 12 month s, was there a time when you were not able to pay the mortgage or rent on time? No [facility] Do you belong to any clubs or organizations such as caodaism groups, unions, fraternal or athletic groups, or school groups? Yes [facility] Do you feel stress - tense, restless, nervous, or anxious, or unable to sleep at night because your mind is troubled all the time - these days [OSQ] Only a little [facility] How often to you hav e a drink containing alcohol? Monthly or less [facility] Functional Status Date Assessment Result Facility 05-30-2025 Total score [AUDIT-C] 1 05/30/20 25 9:46 AM [facility] Notes 06-04-2022 to 2025 Telephone Encounter - Polina Winslow MA - 2025 10:21 AM EDTTelephone Encounter - Polina Winslow MA - 2025 10:21 AM Lisa Kendrick MD - 05/30/2025 9:40 AM EDT Note Date & Type Note Facility 2025 Telephone encount er Note See [employer] message. Polina Winslow MA [facility] 2025 Miscellaneous Notes Formattin g of this note might be different from the original. See [employer] message. Polina Winslow MA documented in this encounter [facility] 05-30-2025 History of Presen t illness Narrative Chief Complaint Patient presents with: Well Adult HPI Jia Olson is a 29 year old male who presents here today for a Physical. Patient here for annual physical and work physical. Has brought Wellness form to be completed. Patient with Hx of migraines. Had recent labs with leukopenia and proteinuria. Jia reports a long-standing history of frequent headaches, occurring more days than not each week, with onset dating back to middle school or high school. He was previously prescribed amitriptyline approximately 8 years ago, but discontinued it due to cardiac side effects, including palpitations. The headaches are described as sudden in onset, sometimes present upon waking, and are localized to the temporal and ocular regions. He denies experiencing auras, but notes a possible association with dairy consumption, though this is inconsistent. The headaches are usually alleviated with ibuprofen. He also reports a history of nasal fractures and frequent sinus infections during childhood, and experiences daily morning rhinorrhea. Recent lab results from 07/22 showed hematuria and proteinuria, with an increase in proteinuria compared to the previous year. He also notes a trend of decreasing WBC count over the past 4 years, with the most recent count being the lowest. He denies any associated symptoms such as night sweats, unexplained weight loss, or easy bruising. He has a family history of leukemia, with his grandfather having from the disease. Additional lab results showed a total cholesterol level of 170 mg/dL, triglycerides at 45 mg/dL, HDL at 73 mg/dL, and LDL at 157 mg/dL. He reports a family history of hypercholesterolemia, with his father recently starting treatment. He believes his diet is healthy. He denies any recent fevers, visual or auditory changes, dyspnea, hemoptysis, chest pain, palpitations, leg edema, nausea, emesis, diarrhea, heartburn, dysuria, hematuria, polyuria, myalgias, arthralgias, rashes, or tremors. He also denies any changes in heat or cold tolerance, or increased thirst. Past medical history, appointments, medications, allergies reviewed. Previous Medical History PAST MEDICAL HISTORY Diagnosis Date Chronic migraine without aura without status migrainosus, not intractable Migraines Palpitations Previous Surgical History PAST SURGICAL [...] on file prior to visit. Social History SOCIAL HISTORY[1] Review of Symptoms REVIEW OF SYSTEMS GENERAL: No weight loss, malaise or fevers HEENT: No changes in hearing or vision, no nose bleeds. Some sinus congestion especially after his headache's. See HPI NECK: Negative for lumps, goiter, pain and significant neck swelling RESPIRATORY: Negative for cough, hemoptysis, wheezing, COPD, dyspnea or shortness of breath CARDIOVASCULAR: Negative for chest pain, leg swelling, hypertension, CHF or palpitations GI: No nausea, vomiting, or diarrhea and No heartburn or reflux symptoms : No history of dysuria, frequency or blood. MUSCULOSKELETAL: Negative for joint pain or swelling, back pain or muscle pain SKIN: Negative for lesions, rash, and itching PSYCH: Negative for sleep disturbance, mood disorder and recent psychosocial stressors HEMATOLOGY/LYMPHOLOGY: Negative for prolonged bleeding, bruising easily or swollen nodes ENDOCRINE: Negative for cold or heat intolerance, polyuria, polydipsia and goiter NEURO: No history of syncope, paralysis, seizures or tremors SEE HPI EXAM: BP 116/74 (BP Site: Left Arm, BP Position: Sitting, BP Cuff Size: Regular Adult) Pulse 68 Resp 16 Ht 181.6 cm (5' 11.5) Wt 72.8 kg (160 lb 9.6 oz) BMI 22.09 kg/m Last 5 Encounter Wt Readings: Date: Wt: 05/30/2025 72.8 kg (160 lb 9.6 oz) 06/22/2024 71.7 kg (158 lb) 05/10/2024 73.6 kg (162 lb 4.1 oz) 06/24/2023 71.7 kg (158 lb) 06/04/2022 68.5 kg (151 lb) General Appearance: Well appearing, alert, in no acute distress, well-hydrated, well nourished.. Skin: Skin color, texture, turgor normal, no suspicious rashes or lesions. Head: Normocephalic, no masses, lesions, tenderness or abnormalities. Eyes: Anicteric sclera. Pupils are equally round and reactive to light. Extraocular movements are intact. . Ears: External ears, TM's normal, canals clear. Nose/Sinuses: Nares normal, septum midline, mucosa normal, [...] organomegaly. Extremities: No deformities, edema, skin discoloration, Good capillary refill. . Musculoskeletal: Spine range of motion normal. Muscular strength intact, No joint swelling, deformity, or tenderness. Peripheral Pulses: Normal. Neurologic: Gait normal. Reflexes normal and symmetric. Sensation to light touch and crainal nerves 2-12 intact.. Genitalia: Normal, Penis normal. No urethral discharge. Scrotum normal to palpation. No hernia.. Health Maintenance List Influenza Vaccine(1) due on 03/19/2026 Depression Screening due on 05/30/2026 Anxiety Screening due on 05/30/2026 DTaP,Tdap,Td Vaccine(8 - Td or Tdap) due on 05/30/2035 Hepatitis B Vaccine Completed HPV Vaccine Discontinued Hepatitis C Screening Discontinued HIV Screening Discontinued Data reviewed External labs reviewed: CMP, UA, CBC Assessment and Plan 1. Well adult exam (Z00.00) Annual physical exam performed; no new health concerns reported in the past year. - Reviewed family history; no new health issues reported among blood relatives. - Next annual physical to be scheduled for next year around this time. 2. Chronic migraine without aura without status migrainosus, not intractable (G43.709) Chronic migraines without aura, occurring more than 4-5 days per week since adolescence; previously trialed amitriptyline with intolerable cardiac side effects. - Start propranolol 10 mg PO daily for migraine prophylaxis. - Discussed propranolol use, including low-dose regimen, typical response rates, and low risk of hypotension or cardiac side effects at this dose. - Advised to monitor response over 2 weeks and report via [employer]; may increase to 20 mg daily if only partial improvement. - Advised to maintain a food journal to identify potential dietary triggers. - Follow-up in 1 month to assess response and adjust treatment as needed. 3. Leukopenia, unspecified type (D72.819) 4. Proteinuria, unspecified type (R80.9) Leukopenia with WBC count trending down over the past 4 years; proteinuria and hematuria noted on recent urinalysis, with increased proteinuria compared to last year. Differential includes underlying kidney abnormality or hematologic malignancy such as multiple myeloma, though suspicion for blood cancer is low given absence of night sweats or weight loss. - Repeat CBC in 1 week to reassess WBC count. - Order 24-hour urine collection to quantify proteinuria. - Order serum studies to evaluate for M protein spike and assess lambda and kappa light chains. - Discussed rationale for further workup and low suspicion for malignancy. - Will consider referral to nephrology or hematology based on lab results. 5. Need for vaccination (Z23) Tetanus booster last administered in 2011; due for repeat vaccination. - Administer tetanus booster today. - Discussed HPV vaccine; patient declined based on long-term monogamous relationship. 6. Encounter for screening examination for other mental health and behavioral disorders (Z13.39) - no clinical issues. 7. Screening for depression (Z13.31) - no clinical issues. Requested Prescriptions Signed Prescriptions Disp Refills propranolol (INDERAL) 10 mg tablet 30 tablet 5 Sig: Take 1 tablet by mouth once daily. F/u in a month Migraines. F/u in a year for WAE. Lisa Morgan MD I spent a total of 34 minutes on the date of the service which included preparing to see the patient, [id number] patient care, completing clinical documentation, performing a medically appropriate examination, counseling and educating the patient/family/caregiver and ordering medications, tests, or procedures. Recording using [employer] software for draft documentation of the visit was discussed with the patient/authorized customer sales representative; all questions welcomed and answered. Patient/authorized customer sales representative agreed to proceed [1] Social History Tobacco Use Smoking status: Never Smokeless tobacco: Never Vaping Use Vaping status: Never Used Substance Use Topics Alcohol use: Yes Comment: rare (2x/month) Drug use: Never documented in this encounter [facility] 05-30-2025 Note HNO ID: [id number] Author: LISA MORGAN MD Service: ? Author Type: Physician Type: Progress Notes Filed: 05/31/2025 22:02 Note Text: Chief Complaint Patient presents with: Well Adult HPI Jia Olson is a 29 year old male who presents here today for a Physical. Patient here for annual physical and work physical. Has brought Wellness form to be completed. Patient with Hx of migraines. Had recent labs with leukopenia and proteinuria. Jia reports a long-standing history of frequent headaches, occurring more days than not each week, with onset dating back to middle school or high school. He was previously prescribed amitriptyline approximately 8 years ago, but discontinued it due to cardiac side effects, including palpitations. The headaches are described as sudden in onset, sometimes present upon waking, and are localized to the temporal and ocular regions. He denies experiencing auras, but notes a possible association with dairy consumption, though this is inconsistent. The headaches are usually alleviated with ibuprofen. He also reports a history of nasal fractures and frequent sinus infections during childhood, and experiences daily morning rhinorrhea. Recent lab results from 07/22 showed hematuria and proteinuria, with an increase in proteinuria compared to the previous year. He also notes a trend of decreasing WBC count over the past 4 years, with the most recent count being the lowest. He denies any associated symptoms such as night sweats, unexplained weight loss, or easy bruising. He has a family history of leukemia, with his grandfather having from the disease. Additional lab results showed a total cholesterol level of 170 mg/dL, triglycerides at 45 mg/dL, HDL at 73 mg/dL, and LDL at 157 mg/dL. He reports a family history of hypercholesterolemia, with his father recently starting treatment. He believes his diet is healthy. He denies any recent fevers, visual or auditory changes, dyspnea, hemoptysis, chest pain, palpitations, leg edema, nausea, emesis, diarrhea, heartburn, dysuria, hematuria, polyuria, myalgias, arthralgias, rashes, or tremors. He also denies any changes in heat or cold tolerance, or increased thirst. Past medical history, appointments, medications, allergies reviewed. Previous Medical History PAST MEDICAL HISTORY Diagnosis Date Chronic migraine without aura without status migrainosus, not intractable Migraines Palpitations Previous Surgical History PAST SURGICAL [...] on file prior to visit. Social History SOCIAL HISTORY[1] Review of Symptoms REVIEW OF SYSTEMS GENERAL: No weight loss, malaise or fevers HEENT: No changes in hearing or vision, no nose bleeds. Some sinus congestion especially after his headache's. See HPI NECK: Negative for lumps, goiter, pain and significant neck swelling RESPIRATORY: Negative for cough, hemoptysis, wheezing, COPD, dyspnea or shortness of breath CARDIOVASCULAR: Negative for chest pain, leg swelling, hypertension, CHF or palpitations GI: No nausea, vomiting, or diarrhea and No heartburn or reflux symptoms : No history of dysuria, frequency or blood. MUSCULOSKELETAL: Negative for joint pain or swelling, back pain or muscle pain SKIN: Negative for lesions, rash, and itching PSYCH: Negative for sleep disturbance, mood disorder and recent psychosocial stressors HEMATOLOGY/LYMPHOLOGY: Negative for prolonged bleeding, bruising easily or swollen nodes ENDOCRINE: Negative for cold or heat intolerance, polyuria, polydipsia and goiter NEURO: No history of syncope, paralysis, seizures or tremors SEE HPI EXAM: BP 116/74 (BP Site: Left Arm, BP Position: Sitting, BP Cuff Size: Regular Adult) Pulse 68 Resp 16 Ht 181.6 cm (5' 11.5) Wt 72.8 kg (160 lb 9.6 oz) BMI 22.09 kg/m? Last 5 Encounter Wt Readings: Date: Wt: 05/30/2025 72.8 kg (160 lb 9.6 oz) 06/22/2024 71.7 kg (158 lb) 05/10/2024 73.6 kg (162 lb 4.1 oz) 06/24/2023 71.7 kg (158 lb) 06/04/2022 68.5 kg (151 lb) General Appearance: Well appearing, alert, in no acute distress, well-hydrated, well nourished.. Skin: Skin color, texture, turgor normal, no suspicious rashes or lesions. Head: Normocephalic, no masses, lesions, tenderness or abnormalities. Eyes: Anicteric sclera. Pupils are equally round and reactive to light. Extraocular movements are intact. . Ears: External ears, TM's n (more content not included)... [facility] 05-22-2025 Note HNO ID: [id number] Author: ROBERTA FAJARDO MA Service: ? Author Type: Photostatic Copy Maker Type: Progress Notes Filed: 05/22/2025 08:38 Note Text: Scan on 05/22/2025 7:37 AM by Edu Jarvis PA-C: UA Scan on 05/22/2025 7:10 AM by Edu Jarvis PA-C: CBC Scan on 05/22/2025 8:16 AM by Edu Jarvis PA-C: [facility] 05-22-2025 History of Presen t illness Narrative Scan on 05/22/2025 7:37 AM by Edu Jarvis PA-C: UA Scan on 05/22/2025 7:10 AM by Edu Jarvis PA-C: CBC Scan on 05/22/2025 8:16 AM by Edu Jarvis PA-C: BMP documented in this encounter [facility] 06-22-2024 Note HNO ID: [id number] Author: SABINE IZQUIERDO APRN.WAIST PLEATER Service: ? Author Type: Nurse Practitioner Type: [...] Aged Out Data reviewed Reviewed labs from [facility], WNL ASSESSMENT/PLAN: 1. Well adult exam - [...] - PREDNISONE 20 MG TABLET Sabine Izquierdo, YASMIN.[facility] 06-22-2024 History of Presen t illness Narrative [...] 01/26/2022 Influenza Vaccine(1) due on 05/21/2024 Covid-19 Vaccine( - season) due on 05/21/2024 Hepatitis C Screening due on 06/24/2024 HIV Screening due on 06/24/2024 Hepatitis B Vaccine Completed HPV Vaccine Aged Out Data reviewed Reviewed labs from [facility], [facility] ASSESSMENT/PLAN: 1. Well adult exam - [...] - PREDNISONE 20 MG TABLET Sabine Izquierdo APRN.SEBLE documented in this encounter [facility] 05-10-2024 Telephone encount er Note Pt was notified of the results. Pt verbalized understanding. Delmis Cleveland MA [facility] 05-10-2024 Miscellaneous Notes Formattin g of this note might be different from the original. Pt was notified of the results. Pt verbalized understanding. Delmis Cleveland MA Please inform patient that chest x-ray is negative. Follow-up with PCP as discussed. Lisa Miller APRN.CNP documented in this encounter [facility] 05-10-2024 Telephone encount er Note Please inform patient that chest x-ray is negative. Follow-up with PCP as discussed. Lisa Miller APRN.CNP [facility] 05-10-2024 History of Presen t illness [...] PATIENT PRESENTS WITH AN IMPLANTABLE OR ATTACHED MEDICAL TRANSCRIPTION EDITOR: No RADIOLOGY DEPARTMENT: General X-ray: Exam(s) Completed: Chest X-Ray PERIPHERAL IV DATA: Not applicable SIGNED BY: RT Cheyanne(R) May 10, 2024 8:37 AM documented in this encounter [facility] 05-10-2024 Instructions Lisa Miller APRN.CNP - 05/10/2024 7:40 AM EDT [facility] [...] primary care provider. documented in this encounter [facility] 05-10-2024 History of Presen t illness [...] weeks symptoms do not improve. Lisa Miller APRN.WAIST PLEATER documented in this encounter [facility] 03-17-2024 History of Presen t illness Narrative Scan on 03/16/2024 7:16 PM by Provider, BRODERICK Sorensen: Consultation - Emergency Medicine documented in this encounter [facility] 06-24-2023 Instructions Isabelle Mensah PA-C - 06/24/2023 1:14 PM EDT Repeat urine in 2 weeks. Otherwise follow up in 1 year. documented in this encounter [facility] 06-24-2023 History of Presen t illness [...] Isabelle Mensah PA-C documented in this encounter [facility] 06-23-2023 History of Presen t illness Narrative Scan on 06/23/2023 8:40 AM by ProviderEdu PA-C: Miscellaneous Lab documented in this encounter [facility] 06-04-2022 History of Presen t illness Narrative Chief Complaint Patient presents with: Physical HPI Jia Olson is a 27 year old male who [...] Isabelle Mensah PA-C documented in this encounter [facility] 06-04-2022 History of Presen t illness Narrative Received copy of pt's lab work from [employer] Gen Duque LPN Scan on 06/04/2022 9:09 AM by External Provider: Chemistry Scan on 06/04/2022 8:41 AM by External Provider: Hematology documented in this encounter [facility] Evaluation note Diagnosis Well adult exam Routine general medical examination at a health care facility [facility] Diagnosis Well adult exam- Primary Routine general medical examination at a health care facility Microscopic hematuria Body aches Generalized pain [facility] Diagnosis Pharyngitis, unspecified etiology- Primary Subacute cough Cough Subacute cough Cough [facility] Diagnosis Subacute cough Cough [facility] Diagnosis Well adult exam- Primary Routine general medical examination at a health care facility Screening for depression Encounter for screening examination for other mental health and behavioral disorders Subacute cough Cough documented in this encounter [facility] note* Diagnosis Well adult exam- Primary Routine general medical examination at a health care facility Chronic migraine without aura without status migrainosus, not intractable Chronic migraine without aura, without mention of intractable migraine without mention of status migrainosus Leukopenia, unspecified type Proteinuria, unspecified type Need for vaccination Need for prophylactic vaccination and inoculation against unspecified single disease Encounter for screening examination for other mental health and behavioral disorders Screening for depression [facility] encounter [facility] Narrative* Diagnostic Procedure Only (Routine) - Closed Specialty Diagnoses / Procedures Referred By Contac t Referred To Contact Radiology / [facility] Diagnoses xr chest urg lobby Procedures XR CHEST Lsia Miller, YASMIN.WAIST PLEATER [address] [place] [address] [facility] [address] [place] [address] Referral ID Status Reason Start Date Expiration Date Visits Re quested Visits Authorized [id number] Closed 05/10/2024 05/10/2024 1 1 [facility] Summary Purpose Family History No Family [...] or prosecute any alcohol or drug abuse patient.[facility] the event this information is protected by the Federal Confidentiality of Alcohol and Drug Abuse Patient Records regulations: The Federal rules restrict any use of the information to criminally investigate or prosecute any alcohol or drug abuse patient.[facility] the event this information is protected by the Federal Confidentiality of Alcohol and Drug Abuse Patient Records regulations: The Federal rules restrict any use of the information to criminally investigate or prosecute any alcohol or drug abuse patient.[facility] Hospital[facility] the event this information is protected by the Federal Confidentiality of Alcohol and Drug Abuse Patient Records regulations: The Federal rules restrict any use of the information to criminally investigate or prosecute any alcohol or drug abuse patient.[facility] Hospital[facility] the event this information is protected by the Federal Confidentiality of Alcohol and Drug Abuse Patient Records regulations: The Federal rules restrict any use of the information to criminally investigate or prosecute any alcohol or drug abuse patient.[facility] Hospital[facility] the event this information is protected by the Federal Confidentiality of Alcohol and Drug Abuse Patient Records regulations: The Federal rules restrict any use of the information to criminally investigate or prosecute any alcohol or drug abuse patient.[facility] Hospital[facility] the event this information is protected by the Federal Confidentiality of Alcohol and Drug Abuse Patient Records regulations: The Federal rules restrict any use of the information to criminally investigate or prosecute any alcohol or drug abuse patient.[facility] Hospital[facility] the event this information is protected by the Federal Confidentiality of Alcohol and Drug Abuse Patient Records regulations: The Federal rules restrict any use of the information to criminally investigate or prosecute any alcohol or drug abuse patient.[facility] Hospital[facility] the event this information is protected by the Federal Confidentiality of Alcohol and Drug Abuse Patient Records regulations: The Federal rules restrict any use of the information to criminally investigate or prosecute any alcohol or drug abuse patient.[facility] Hospital[facility] the event this information is protected by the Federal Confidentiality of Alcohol and Drug Abuse Patient Records regulations: The Federal rules restrict any use of the information to criminally investigate or prosecute any alcohol or drug abuse patient.[facility] HospitalIn the event this information is protected by the Federal Confidentiality of Alcohol and Drug Abuse Patient Records regulations: The Federal rules restrict any use of the information to criminally investigate or prosecute any alcohol or drug abuse patient.[facility] HospitalIn the event this information is protected by the Federal Confidentiality of Alcohol and Drug Abuse Patient Records regulations: The Federal rules restrict any use of the information to criminally investigate or prosecute any alcohol or drug abuse patient.[facility] Reason for Visit (unrecogniz ed section and content) Reason Comments Outside Lab Results Patient employee [facility] lab results Reason Comments Physical Reason Comments Outside [id number] Ordered Reason Comments Yearly Exam Reason Comments ER Discharge Summary Reason Comments Results Reason Comments Sore Throat ST, DOUGLAS and fever x 1 week Reason Comments Well Adult Care Teams (unrecognized sec tion and content) Clinical Pathologist Relationship Specialty Start Date End Date Lisa Morgan MD [address] [place] [address] PCP - General Family Practice 07/03/21 Clinical Pathologist Relationship Specialty Start Date End Date Lisa Morgan MD [address] [place] [address] PCP - General Family Practice 07/03/21 Clinical Pathologist Relationship Specialty Start Date End Date Lisa Morgan MD [address] [place] [address] PCP - General Family Medicine 07/03/21 Clinical Pathologist Relationship Specialty Start Date End Date Lisa Morgan MD [address] [place] [address] PCP - General Family Medicine 07/03/21 Clinical Pathologist Relationship Specialty Start Date End Date Lisa Morgan MD [address] [place] [address] PCP - General Family Medicine 07/03/21 Clinical Pathologist Relationship Specialty Start Date End Date Lisa Morgan MD [address] [place] [address] PCP - General Family Medicine 07/03/21 Clinical Pathologist Relationship Specialty Start Date End Date Lisa Morgan MD [address] [place] [address] PCP - General Family Medicine 07/03/21 Clinical Pathologist Relationship Specialty Start Date End Date Lisa Morgan MD [address] [place] [address] PCP - General Family Medicine 07/03/21 Clinical Pathologist Relationship Specialty Start Date End Date Lisa Morgan MD [address] [place] [address] PCP - General Family Medicine 07/03/21 Clinical Pathologist Relationship Specialty Start Date End Date Lisa Morgan MD [address] [place] [address] PCP - General Family Medicine 07/03/21 Sabine Izquierdo APRN.WAIST PLEATER [address] [place] [address] [facility] 02/19/25 Isabelle Mensah PA-C [address] [place] [address] [facility] 02/19/25 Clinical Pathologist Relationship Specialty Start Date End Date Lisa Morgan MD [address] [place] [address] PCP - General Family Medicine 07/03/21 Sabine Izquierdo, YASMIN.WAIST PLEATER [address] [place] [address] [facility] 02/19/25 Isabelle Mensah PA-C [address] [place] [address] [facility] 02/19/25 Clinical Pathologist Relationship Specialty Start Date End Date Lisa Morgan MD [address] [place] [address] PCP - General Family Medicine 07/03/21 Sabine Izquierdo APRN.SEBLE [address] [place] [address] [facility] 02/19/25 Isabelle Mensah PA-C [address] [place] [address] [facility] 02/19/25 (unrecognized sect ion and content) No Status Records FoundNo Status Records Found INFORMATION SOURCE (unrecogn ized section and content) DATE CREATED AUTHOR 05/22/2025 [facility] DATE CREATED AUTHOR AUTHOR'S HUNTER BELLAMY 2025 [facility] FOR RECORDS PERTAINING TO PATIENTS WHO ARE [...] BE BASED ON THE PRIMARY CLINICAL RECORDS. [employer] provides no warranty or guarantee of the accuracy or completeness of information in this document.
[2025-06-02 09:44] LABS: Hematocrit 46.3 % (40-54); Hemoglobin 15.4 g/dL (13.0-16.5); Immature Granulocytes Count 0.010 X10^3/uL (0.0-0.0); Mean Corp Hgb Conc 33.3 g/dL (32-36); Mean Corpuscular Volume 89.2 fL (80-94); Mean Platelet Vol. 9.7 fl (6.2-12.0); NRBC Flagged by Analyzer 0 % (0-5); Platelet Count 269 K/mm3 (150-450); RBC Distribution Width CV 12.5 % (11.6-14.6); RBC Distribution Width SD 40.8 fl (35.1-43.9); Red Blood Count 5.19 M/mm3 (4.6-6.2); White Blood Count 4.4 K/mm3 (4.4-11.0)
[2025-06-05 16:09] LABS: M-Spike, Ur % Not Observed % (Not Observed); Protein, 24Ur < 37 mg/24 hr (30-150); Total Protein, Ur < 4.0 mg/dL (Not Estab.)
== END | disposition home or self-care (01) ==
LOC: LAB 09:08
PROVIDERS: PCP Family Medicine; Referring Provider Family Medicine; Visit Provider Family Medicine
DX: R80.9 Proteinuria, unspecified (principal)
CPT/HCPCS: 36415; 81050; 83883; 84166; 85025